=== PATIENT | male | born 1985 | race Caucasian/White ===

== ENCOUNTER 2016-10-19 19:13 | Emergency (ER) | payer MEDICARE, OTHER ==
[2016-10-19 19:37] VITALS: BP 113/66
== END 2016-10-19 21:01 | disposition left against medical advice (07) ==
LOC: ER 19:13
DX: Z53.21 Procedure and treatment not carried out due to patient leaving prior to being seen by health care provider (principal)

== ENCOUNTER 2016-10-20 11:50 | Emergency (ER) | payer MEDICARE, OTHER ==
[2016-10-20 12:21] VITALS: BP 123/68
--- NOTE | 2016-10-20 12:38 | ERNOTE ---
Lower Extremity HPI - Narrative Date of Service: 10/20/16 - General Lower Extremities Pain: hip: right Time Seen by Provider: 10/20/16 12:38 Source: patient Exam Limitations: no limitations - Immun/Allergies/Home Medications Immunizations: IMMUNIZATION HX Immunizations Up to Date Yes History of Influenza Vaccine No Hx Pneumococcal Vaccination No Allergies/Adverse Reactions: Allergies Allergy/AdvReac Type Severity Reaction Status Date / Time diphenhydramine HCl AdvReac Intermediate rash Verified 10/20/16 12:20 [From Benadryl] steriod Allergy Severe Other Uncoded 10/20/16 12:20 Home Medications: HOME MEDICATIONS Hydromorphone HCl [Dilaudid] 4 mg PO QID PRN 10/19/16 [Last Taken Unknown] oxyCODONE HCL/ACETAMINOPHEN [Percocet 5 MG/325 MG] 1 tab PO QID PRN #14 tablet 10/20/16 [Last Taken Unknown] - History of Present Illness Narrative: Pt has evidence of recent R hip surgery. he sts that he missed his appt yest and that he is being mailed a prescription along with a new appt. He is requesting dilaudid po for pain. The wound apeears clean and dry and not infected Location of Incident: other - surgery in preparation for a new total hip replacment. He sts that his previous hip prosthesis was recalled Other Injuries: Reports: none Prior Treament: Reports: recently seen, treated by physician, recently hospitalized - see HPI Review of Systems - Review of Systems Constitutional: Present: no symptoms reported EYE: Present: no symptoms reported ENT: Present: no symptoms reported Respiratory: Present: no symptoms reported Cardiology: Present: no symptoms reported Gastrointestinal/Abdominal: Present: no symptoms reported Genitourinary: Present: no symptoms reported Musculoskeletal: Present: no symptoms reported Skin: Present: no symptoms reported - Patient's Past Medical History Patient History - Medical: Anxiety, Arthritis, Chronic Pain, Osteoarthritis, Other Patient History - Cardiac/Respiratory: No pertinent hx Patient History - Cancer: No Hx of Cancer Patient History - Surgical Procedures: Ear Tubes, Total Hip Replacement, T & A - Family History Father Family History - Medical: Diabetes Type 2 Family History - Cardiac/Respiratory: No pertinent hx - Social History Living Situations: home Alcohol Use: none Drug Use: marijuana Physical Exam - Physical Exam General Appearance: Present: alert, mild distress Eye Exam: Normal inspection: bilateral Ears, Nose, Throat: Present: normal ENT inspection Neck: Present: normal inspection Respiratory: Present: no respiratory distress Cardiovascular/Chest: Present: regular rate, rhythm Gastrointestinal/Abdominal: Present: normal bowel sounds Back Exam: Present: normal inspection Extremity Exam: Present: other - long incision to the R lateral thigh. Multiple sutures still in place. No erythema or exudate Neurological Exam: Present: alert ED Progress - Vital Signs Patient's Vital Signs:: I have reviewed the patient's vital signs. Vital Signs: Vital Signs 10/20/16 12:11 Temperature 36.9 C Pulse Rate 81 Respiratory 12 Rate Blood Pressure 123/68 O2 Sat by Pulse 100 Oximetry - Progress/Reassessment Chief Complaint: Hip Pain/Injury Plan - Plan Plan: percocet 5/325 po q6 hrs x 3 days Departure Clinical Impression: Post-op pain - Departure Disposition: Home self-care Condition: Good Instructions: Total Hip Replacement, [id number] Prescriptions: oxyCODONE HCL/ACETAMINOPHEN [Percocet 5 MG/325 MG] 1 tab PO QID PRN #14 tablet PRN Reason: Analgesia
== END 2016-10-20 13:01 | disposition home or self-care (01) ==
LOC: ER 11:50
DX: G89.18 Other acute postprocedural pain (principal); Z96.641 Presence of right artificial hip joint

== ENCOUNTER 2016-12-21 00:59 | Emergency (ER) | payer MEDICARE, OTHER ==
--- NOTE | 2016-12-21 01:16 | ERNOTE ---
Medical Problem HPI - General Chief Complaint: Drug Overdose Time Seen by Provider: 12/21/16 00:59 Source: EMS Exam Limitations: clinical condition, intoxication - / OD - Immun/Allergies/Home Medications Immunizations: IMMUNIZATION HX Immunizations Up to Date Yes History of Influenza Vaccine No Hx Pneumococcal Vaccination No Allergies/Adverse Reactions: Allergies diphenhydramine HCl [From Benadryl] Adverse Reaction (Intermediate, Verified 05/02 01:09) rash steriod Allergy (Severe, Uncoded 12/21/16 01:09) Other caused bone disease Home Medications: HOME MEDICATIONS Hydromorphone HCl [Dilaudid] 4 mg PO QID PRN 10/19/16 [Last Taken Unknown] oxyCODONE HCL/ACETAMINOPHEN [Percocet 5 MG/325 MG] 1 tab PO QID PRN #14 tablet 10/20/16 [Last Taken Unknown] - History of Present History Narrative: EMS was called to 31 yo M unresponsive. When they arrived they found irregular respirations from 0-10 resp per min. Pt was given 1 mg narcan by EMS and patient was beginning to awaken when he arrived in the ED. He continued to be lethargic for 30-60 minutes. Timing: other - improved due to narcan administration by EMS Severity: severe Modifying Factors - (Improves): Present: medication Review of Systems - Review of Systems Constitutional: Present: fatigue, malaise. Absent: recent illness EYE: Present: no symptoms reported ENT: Present: no symptoms reported Respiratory: Present: no symptoms reported Cardiology: Present: no symptoms reported Gastrointestinal/Abdominal: Present: nausea Genitourinary: Present: no symptoms reported Musculoskeletal: Present: back pain, joint pain - right hip infection, currently has a spacer waiting for reimplantation of hip Skin: Present: no symptoms reported Neurological: Present: no symptoms reported Endocrine: Present: no symptoms reported Hematologic/Lymphatic: Present: no symptoms reported Psych: Present: anxiety, depressed - Patient's Past Medical History Patient History - Medical: Anxiety, Arthritis, Chronic Pain, Osteoarthritis, Other Patient History - Cardiac/Respiratory: No pertinent hx Patient History - Cancer: No Hx of Cancer Patient History - Surgical Procedures: Ear Tubes, Total Hip Replacement, T & A Patient History - Other: None - Family History Father Family History - Medical: Diabetes Type 2 Family History - Cardiac/Respiratory: No pertinent hx - Social History Living Situations: home Abuse History: No History of abuse Psych History: Hx of Anxiety, Hx of Depression, Current tx/ever been on anti- depressants or anti-anxiety meds Smoking Status: Current every day smoker Patient requests Smoking Cessation Consult: No Initiate information on Smoking Cessation: No Alcohol Use: none Drug Use: marijuana - Immunizations Immunizations Up to Date: Yes Hx Pneumococcal Vaccination: No History of Influenza Vaccine: No Physical Exam - Physical Exam General Appearance: Present: moderate distress, lethargic - slurring words Respiratory: Present: no respiratory distress, normal breath sounds, no accessory muscle use Cardiovascular/Chest: Present: regular rate, rhythm, no murmur Gastrointestinal/Abdominal: Present: nontender, nondistended Back Exam: Present: no vertebral tenderness Extremity Exam: Present: normal except - - left hip tenderness, IO in left upper humerus, stable and running fluids, no edema Neurological Exam: Present: alert, oriented - after 30-60 minutes, other - pt agitated, but somewhat lethargic as well Skin Exam: Present: normal color, warm/dry, other - Many tattoos in good condition. a few injection points that are probably attempts by EMS to start IV access. ED Progress - Results and Orders Patient's Lab Results:: I have reviewed the patient's lab results. Results and Orders: Laboratory Tests 12/21/16 12/21/16 01:20 01:20 WBC 7.5 Hgb 11.5 L Hct 37.0 L Plt Count 265 Sodium 144 H Potassium 4.0 D Chloride 103 Carbon Dioxide 31.7 Anion Gap 13.3 BUN 20 D Creatinine 1.38 Est GFR (Non-Af Amer) 64 BUN/Creatinine Ratio 14.5 Random Glucose 120 H Calcium 9.0 Total Bilirubin 0.4 AST 38 ALT 60 Alkaline Phosphatase 77 Total Protein 8.3 H Albumin 4.2 Salicylates 3.2 Acetaminophen Less than 0.2 L Ethyl Alcohol Less than 3.0 - Vital Signs Patient's Vital Signs:: I have reviewed the patient's vital signs. Vital Signs: Vital Signs 12/21/16 01:02 Temperature 36.5 C Pulse Rate 92 Respiratory 20 Rate Blood Pressure 106/72 O2 Sat by Pulse 98 Oximetry - EKG EKG: NSR EKG read: Interp. by me - Progress/Reassessment Chief Complaint: Drug Overdose Progress:: Improved - Mom was able to get him to tell that he had tampered with a fentanyl patch (50 mcg/h) and squirted the medicine into his mouth Progress Note-Subjective: 12/21/16 04:23 Pt has been sleeping. Vital signs have been stable for past 60-90 minutes Departure - Departure Clinical Impression: Chronic left hip pain Drug overdose Qualifiers: Encounter type: initial encounter Injury intent: accidental or unintentional Qualified Code(s): T50.901A - Poisoning by unspecified drugs, medicaments and biological substances, accidental (unintentional), initial encounter Disposition: Home self-care Condition: Good Instructions: Finding Treatment for Addiction, Opioid Overdose
[2016-12-21 01:32] LABS: Hemoglobin 11.5 gm/dL (13.5-18.0); Mean Cell Volume 84.1 fl (78-100); Mean Corpuscular Hemoglobin 26.1 pg (27-31); Mean Corpuscular Hgb Conc 31.1 g/dl (32-36); Neutrophil # 4.3 K/mm3 (1.3-6.0); Neutrophil % 57.7 % (42-75.0); Platelet Count 265 K/mm3 (150-450); Red Cell Distribution Width 16.1 % (11.5-14.0); White Blood Count 7.5 K/mm3 (4.0-10.5)
[2016-12-21 01:44] LABS: ALT 60 U/L (19-67); AST 38 U/L (0-48); Albumin * 4.2 gm/dl (3.4-5.0); Alkaline Phosphatase * 77 U/L (50-170); Anion Gap 13.3 mmol/L (6.8-13.8); BUN/Creatinine Ratio 14.5 (9.0-21.6); Bilirubin, Total 0.4 mg/dL (0.0-1.1); Blood Urea Nitrogen 20 mg/dL (6-23); Ca. Corrected For Albumin 8.5 mg/dL (8.4-10.2); Carbon Dioxide 31.7 mmol/L (24-32.6); Chloride 103 mmol/L (97-106); Glucose * 120 mg/dL (70-110); Salicylate 3.2 mg/dL (2.8-20.0); Sodium 144 mmol/L (132-142); Total Protein 8.3 gm/dL (6.2-8.2)
[2016-12-21] MEDS ORDERED: NORMAL SALINE 1,000 ML IV ONE (01:49)
--- OUTSIDE RECORDS SUMMARY | 2016-12-21 03:21 | XMS REPORT | Continuity of Care Document ---
:1985 Author Organization [facility] ([facility]) Address [address] [place] [address] Phone [phone] Care Team Providers Name Role Phone Provider, No-Primary Care Primary Care Provider Unavailable Source Comments This disclosure is being made pursuant to the Care Everywhere program, applicable federal and state laws, and may not contain all informaitonavailable regarding this patient.[facility] ([facility]) Active Allergies and Adverse Reactions Allergen Noted Date Severity Reactions Comments Diphenhydramine-Pseudoephe 03/20/2009 Urticaria (Hives) d Neuromuscular Blockers, 03/13/2014 Unknown Cause skin infection Steroidal Current Medications Prescription Sig. Disp. Refills Start Date End Date Status docusate 100 mg Take 1 capsule 60 capsule 0 10/08/2016 Active capsule (100 mg total) by mouth 2 times daily as needed. aspirin 81 mg EC Take 1 tablet 84 tablet 0 10/08/2016 Active tablet (81 mg total) by mouth 2 times daily. morpHINE 30 mg tablet Take 1/2 - 1 60 tablet 0 10/08/2016 Active tablet (15-30 mg total) by mouth every 4 hours as needed for pain. hydrOXYzine HCl 25 mg Take 1-2 120 tablet 0 10/08/2016 Active tablet tablets (25-50 mg total) by mouth every 4 hours as needed for Muscle spasms. naproxen 500 mg Take 1 tablet 60 tablet 3 10/08/2016 Active tablet (500 mg total) by mouth 2 times daily with meals. morpHINE 15 mg tablet Take 2 tablets 45 tablet 0 10/23/2016 Active (30 mg total) by mouth every 6 hours as needed. HYDROcodone-acetamino Take 1 tablet 60 tablet 0 11/05/2016 Active phen 5-325 mg per by mouth every tablet 8 hours as needed for Pain. ibuprofen 200 mg Take 800 mg by Active tablet mouth every 6 hours as needed. oxyCODONE-acetaminoph Take 1 tablet 30 tablet 0 11/19/2016 Active en 5-325 mg per by mouth every tablet 8 hours as needed. amoxicillin 875 mg Take 1 tablet 28 tablet 0 11/19/2016 12/03/2016 tablet (875 mg total) by mouth 2 times daily for 14 days. 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 Left hip pain 10/23/2016 Septic hip 10/05/2016 Intravenous drug abuse,illegal drugs and prescription narcotics 03/13/2014 ESR raised 03/13/2014 CRP elevated 03/13/2014 Tobacco abuse 03/13/2014 Alcohol abuse 03/13/2014 Dental caries 03/13/2014 Tooth infection 03/13/2014 Avascular necrosis of bones of both hips, diagnosed 200703/13/2014 History of total R hip arthroplasty, 09/200803/13/2014 Hip pain, chronic 03/13/2014 Hip pain, acute 03/13/2014 Most Recent Encounters Date Type Specialty Providers Description 01/03/2017 [facility] General Surgery Rodríguez Merchant Encounter MD Alice 12/16/2016 Office Visit Dentistry Vik Parnell Chief Comp: Pre-op L, ZINA Exam Conor Acuña DDS 12/16/2016 Telephone Orthopaedic Rodríguez Merchant Chief Comp: Follow-up MD Alice 12/13/2016 Office Visit Dentistry Dx: Dental examination 12/13/2016 Office Visit Felipe Mcgregor, Dx: Hip joint DDS replacement status Thomas Álvarez DDS 12/13/2016 Ancillary Orders Felipe Mcgregor Dx: Dental examination DDS (Primary Dx) 12/10/2016 Office Visit Dentistry Chief Comp: Patient Reported Reason For Visit 12/09/2016 Telephone Orthopaedic Rodríguez Merchant Dx: Hip joint MD Alice replacement status (Primary Dx) 12/06/2016 [facility] Radiology Ute Gee Chief Comp: Patient Encounter MD Dharmesh Reported Reason For Visit 12/06/2016 Office Visit Orthopaedic Rodríguez Merchant Dx: Pre-op testing MD Alice (Primary Dx) Vicente Sullivanise A, PREPARED FO[employer]S SERVICE TEAM MEMBER 11/24/2016 Surgery General Surgery Noiseux, Rodríguez ARTHROPLASTY HIP MD Alice REVISION JUANJOSE 11/22/2016 Telephone Rodríguez Fitzgerald MD 11/19/2016 Office Visit Med Infectious Default, Other Dx: Septic hip Disease Billg - Defo (Primary Dx) Eunice Gomez MD Team, Msc Id II 11/19/2016 [facility] Radiology Gerard Ute Dx: Aftercare Encounter MD Dharmesh following surgery of the musculoskeletal system 11/19/2016 Office Visit Orthopaedic Shonda Rodríguez Dx: Aftercare MD Alice following surgery of SullivanDeborah A, the musculoskeletal PREPAR[employer] SERVICE TEAM MEMBER system (Primary Dx) 11/19/2016 Office Visit Med Infectious Default, Other Chief Comp: Patient Disease Billg - Defo Reported Reason For Team, Msc Id II Visit 11/15/2016 Telephone Orthopaedic Rodríguez Merchant Chief Comp: Follow-up MD Alice 11/09/2016 Office Visit Orthopaedic Koko Merchantlas Chief Comp: Patient OMD Reported Reason For SullivanVicente medelise A, Visit PREPARED [employer] SERVICE TEAM MEMBER 11/05/2016 Office Visit Orthopaedic Noiseux, Rodríguez Dx: Right hip pain MD Alice (Primary Dx) Deborah Sullivan A, PREPARED [employer]S SERVICE TEAM MEMBER 11/05/2016 Office Visit Orthopaedic Noiserupa, Rodríguez Chief Comp: Patient OMD Reported Reason For Sullivan Deborah A, Visit PREPAR[employer] SERVICE TEAM MEMBER 10/29/2016 Office Visit Orthopaedic Noiseux, Rodríguez Chief Comp: Patient MD Alice Reported Reason For Sullivan, Deborah A, Visit PREPAR[employer] SERVICE TEAM MEMBER 10/23/2016 [facility] Emergency Medicine Laurent Alejandra Dx: Septic hip Encounter MD Navin (Primary Dx) 10/22/2016 Telephone Orthopaedic Renee Nassar Chief Comp: Court Meeks MD Only 10/19/2016 Telephone Orthopaedic Rodríguez Merchant Chief Comp: Follow-up MD Alice 10/08/2016 Pharmacy Visit 10/06/2016 Surgery General Surgery Shonda, Rodríguez RESECTION ARTHROPLASTY MD Alice TOTAL HIP AML/PINNACLE 10/05/2016 Anesthesia Event General Surgery John Dick, SHIPPING AND RECEIVING 10/05/2016 Telephone Gayathri Shaikh MD Chief Comp: Consult With Local Provider 10/05/2016 Telephone Orthopaedic Charles Chief Comp: Monitored Smith Kelley MD Phone Call 10/04/2016 - [facility], Thu M, MD Dx: Avascular necrosis 10/08/2016 Encounter Inpatient - Adult [place], of bones of both hips, Spencer Kelley MD diagnosed 2007 Ahmed, (Primary Dx) MD Shonda Avery Nicolas O, MD Social History Tobacco Use Types Packs/Day Years Used Date Current Every Day Smoker Cigarettes 1 10 Smokeless Tobacco: Never Used Tobacco Cessation:Ready to Quit: No; Counseling Given: No Comments: Alcohol Use Drinks/Week oz/Week Comments Yes 6 Cans of beer 3.5 Drinks beer primarily. 7 Standard drinks or equivalent Last Filed Vital Signs Vital Sign Reading Time Taken Blood Pressure 119/72 12/16/2016 11:51 AM OIL FIELD OPERATOR Pulse 80 12/16/2016 11:51 AM OIL FIELD OPERATOR Temperature 36.2 C (97.2 F) 12/16/2016 11:49 AM OIL FIELD OPERATOR Respiratory Rate 18 10/23/2016 12:09 PM OIL FIELD OPERATOR Height 1.753 m (5' 9") 10/05/2016 3:44 PM OIL FIELD OPERATOR Weight 77.111 kg (170 lb) 11/19/2016 2:46 PM OIL FIELD OPERATOR Body Mass Index 25.09 11/19/2016 2:46 PM OIL FIELD OPERATOR Oxygen Saturation 98% 10/23/2016 12:09 PM OIL FIELD OPERATOR Plan of Care Date Type Specialty Providers Description 12/31/2016 Appointment Dentistry Mian Duckworth DDS Chief Comp: Patient [address] [place] [address] Visit [phone] (Fax) 01/03/2017 Surgery General Surgery Rodríguez Merchant MD ARTHROPLASTY HIP [address] [place] [address] [phone] (Fax) Health Maintenance Due Date Last Done Comments Hepatitis B Vaccine (1 of 3 - Primary Series) 1985 Tdap Vaccine 1997 Lipid Disorder Screening 2004 MMR Vaccine 2004 Td Vaccine 2004 Varicella Vaccine (1 of 2 - Adult - No Evidence of 2004 Immunity) Pneumococcal Vaccine (1 of 1 - PPSV23) 2005 Influenza Vaccine: Seasonal (#1) 05/17/2016 Procedures from Last 3 Months Procedure Name Priority Date/Time Associated Diagnosis Comments ABSTRACTED BY BILLING Routine 10/19/2016 9:11 Infection of right Results for this STAFF AM OIL FIELD OPERATOR prosthetic hip joint procedure are in Intravenous drug the results abuse,illegal drugs section. and prescription narcotics RESECTION 10/06/2016 9:10 Intravenous drug ARTHROPLASTY TOTAL AM OIL FIELD OPERATOR abuse HIP AML/PINNACLE Case Notes Corail/ASR out, Stage One Select in Results from Last 3 Months HOSP DENT SINGLE PANOREX (EACH) (12/13/2016 3:56 PM)PELVIS LOW AP& LATERAL HIP RIGHT (12/06/2016 11:41 AM) Impressions Findings / Impression: Stable appearance of the right hip implant with antibiotic spacer, without interval hardware complication. No fractures or dislocations. Redemonstrated left hip arthroplasty appears stable. Narrative Procedure: PELVIS LOW AP & LATERAL HIP RIGHT Clinical Indication: Status post right hip explant and recent fall on right leg Comparison: 11/19/2016, 10/06/2016 Procedure Note Alcides, Incoming Imaging Results - TueDec 06, 2016 6:57 PM OIL FIELD OPERATOR Procedure: PELVIS LOW AP & LATERAL HIP RIGHT Clinical Indication: Status post right hip explant and recent fall on right leg Comparison: 11/19/2016, 10/06/2016 IMPRESSION Findings / Impression: Stable appearance of the right hip implant with antibiotic spacer, without interval hardware complication. No fractures or dislocations. Redemonstrated left hip arthroplasty appears stable. DIFFERENTIAL (12/06/2016 11:32 AM) Component Value Range % Neutrophils-Auto Diff 45.8 % Neutrophils-Auto Diff 2450 7628-9820 /MM3 % Lymphocytes-Auto Diff 43.0 % Lymphocytes-Auto Diff 2300 875-3300 /MM3 % Monocytes-Auto Diff 6.5 % Monocytes-Auto Diff 350 130-860 /MM3 % Eosinophils-Auto Diff 3.6 % Eosinophils-Auto Diff 190 40-390 /MM3 % Basophils 0.7 % Basophils-Auto Diff 40 10-136 /MM3 % Immature Granulocytes-Auto Diff 0.4 % Immature Granulocytes-Auto Diff 20 /MM3 Specimen Whole Blood CBC (COMPLETE BLOOD COUNT) (12/06/2016 11:32 AM) Component Value Range WBC Count 5.4 3.7-10.5 K/MM3 RBC Count 4.49(L) 4.50-6.20 M/MM3 Hemoglobin 12.0(L) 13.2-17.7 g/dL Hematocrit 38(L) 40-52 % MCV (Mean Corpuscular Volume) 85 82-99 FL MCH (Mean Corpuscular Hemoglobin) 27 25-35 PG MCHC (Mean Corpuscular Hemoglobin Concentration) 32 32-36 % Platelet Count 389 150-400 K/MM3 MPV (Mean Platelet Volume) 10.4 9.4-12.3 FL RBC Dist Width-STD 51.9(H) 35.1-43.9 FL RBC Distrib Width 16.9(H) 9.0-14.5 % Nucleated RBC 0 /100 WBC Specimen Whole Blood MICROSCOPIC URINALYSIS (12/06/2016 11:32 AM) Component Value Range White Blood Cells, Urine <1 0-5 /HPF Red Blood Cells, Urine <1 0-2 /HPF Mucous-Urine Rare None, Rare Specimen Urine URINALYSIS WITH REFLEX CULTURE (12/06/2016 11:32 AM) Component Value Range Color, Urine Straw Straw, Pale Yellow, Yellow, Clear, None Clarity, Urine Clear Clear pH, Urine 6.0 <9.0 Spec [place], Urine 1.005 1.000-1.030 Glucose, Urine Negative Negative Blood, Urine Negative Negative Ketones, Urine Negative Negative Protein, Urine Negative Negative Urobilinogen, Urine Normal Normal Bilirubin, Urine Negative Negative Leukocyte Esterase, Urine Negative Negative Nitrite, Urine Negative Negative Specimen Urine BASIC METABOLIC PANEL W/ CALCIUM (CHEM 8) (12/06/2016 11:32 AM)Only the most recent of2 resultswithin the time period is included. Component Value Range Sodium 137 135-145 mEq/L Potassium 4.2 3.5-5.0 mEq/L Chloride 100 95-107 mEq/L CO2 22 22-29 mEq/L Anion Gap 15 8-18 mEq/L BUN 14 10-20 mg/dL Creatinine 0.8Comment: 0.6-1.2 mg/dL Creatinine switched to enzymatic method on 02/23/2011.GFR equation switched to IDMS-traceable MDRD equation on 02/23/2011. Calculated GFR values are not valid in clinical settings where serum creatinine is changing. Glucose 101(H)Comment: 65-99 mg/dL The Expert Committee on the Diagnosis and Classification of Diabetes has defined impaired fasting glucose as greater than or equal to 100 mg/dL but less than 126 mg/dL.(Diabetes Care 28 (Suppl 1)S41,2005) Calcium 9.5 8.5-10.5 mg/dL Calculated GFR >90 >60 mL/min/1.73 m2 Specimen Blood URINALYSIS WITH REFLEXED CULTURE AND MICROSCOPIC EXAM (12/06/2016 11:32 AM) Specimen Culture - Urine, Midstream clean catch Narrative The following orders were created for panel order URINALYSIS WITH REFLEXED CULTURE AND MICROSCOPIC EXAM. Procedure Abnormality Status --------- ------ URINALYSIS WITH REFLEX C...[[id number]]Normal Final result MICROSCOPIC URINALYSIS[[id number]] Normal Final result URINE CULTURE, REFLEXED[[id number]] Please view results for these tests on the individual orders. CBC WITH DIFFERENTIAL (12/06/2016 11:32 AM) Specimen Whole Blood Narrative The following orders were created for panel order CBC WITH DIFFERENTIAL. Procedure Abnormality Status --------- ------ CBC (COMPLETE BLOOD COUNT)[[id number]] AbnormalFinal result DIFFERENTIAL[[id number]] Final result Please view results for these tests on the individual orders. ERYTHROCYTE SEDIMENTATION RATE (12/06/2016 11:32 AM)Only the most recent of4 resultswithin the time period is included. Component Value Range ESR (Erythrocyte Sedimentation Rate) 10 0-15 mm/Hr Specimen Whole Blood C-REACTIVE PROTEIN (12/06/2016 11:32 AM)Only the most recent of4 resultswithin the time period is included. Component Value Range CRP (C-Reactive Protein) <0.5 <=0.5 mg/dL Specimen Blood MRSA/SA PCR (12/06/2016 11:32 AM) Component Value Range MRSA by PCR Negative Negative S. AUREUS by PCR NegativeComment:Negative for SA Negative Specimen Nasal Swab (MRSA) - Nasal Swab Narrative Test methodology:PCR amplification; Xpert SA Test ([employer]) PELVIS LOW AP& AP,LAT& LAUEN HIP RIGHT (11/19/2016 1:50 PM) Impressions Findings / Impression: Limited view of the left hip shows stable postsurgical changes of left total hip arthroplasty without evidence of interval hardware complication. Stable postsurgical changes of right hip explant with antibiotic spacer placement. Alignment is stable without evidence of interval hardware complication. No acute fracture or dislocation. Narrative Procedure: PELVIS LOW AP & AP,LAT & LAUEN HIP RIGHT Clinical Indication: Evaluate healing and alignment. Comparison: Radiographs of the pelvis (10/06/2016), radiographs of the right hip (10/23/2016) Procedure Note Alcides, Incoming Imaging Results - TueNov 19, 2016 3:00 PM OIL FIELD OPERATOR Procedure: PELVIS LOW AP & AP,LAT & LAUEN HIP RIGHT Clinical Indication: Evaluate healing and alignment. Comparison: Radiographs of the pelvis (10/06/2016), radiographs of the right hip (10/23/2016) IMPRESSION Findings / Impression: Limited view of the left hip shows stable postsurgical changes of left total hip arthroplasty without evidence of interval hardware complication. Stable postsurgical changes of right hip explant with antibiotic spacer placement. Alignment is stable without evidence of interval hardware complication. No acute fracture or dislocation. HIP AP& LATERAL RIGHT (10/23/2016 2:40 PM)Only the most recent of2 resultswithin the time period is included. Impressions Findings / Impression: Postsurgical changes of right hip explant with antibiotic spacer placement without evidence of complication. No perihardware lucency to suggest loosening. No periprosthetic fracture. If there is concern for infection, consider joint aspiration and fluid analysis. Narrative Procedure: HIP AP & LATERAL RIGHT Clinical Indication: History of septic arthritis, pain Comparison: 10/06/2016 Procedure Note Alcides, Incoming Imaging Results - Sat Oct 23, 2016 6:15 PM OIL FIELD OPERATOR Procedure: HIP AP & LATERAL RIGHT Clinical Indication: History of septic arthritis, pain Comparison: 10/06/2016 IMPRESSION Findings / Impression: Postsurgical changes of right hip explant with antibiotic spacer placement without evidence of complication. No perihardware lucency to suggest loosening. No periprosthetic fracture. If there is concern for infection, consider joint aspiration and fluid analysis. CREATININE (10/23/2016 1:46 PM)Only the most recent of2 resultswithin the time period is included. Component Value Range Creatinine 0.9Comment: 0.6-1.2 mg/dL Creatinine switched to enzymatic method on 02/23/2011.GFR equation switched to IDMS-traceable MDRD equation on 02/23/2011. Calculated GFR values are not valid in clinical settings where serum creatinine is changing. Calculated GFR >90 >60 mL/min/1.73 m2 Specimen Blood CBC (COMPLETE BLOOD COUNT) (10/23/2016 1:46 PM)Only the most recent of2 resultswithin the time period is included. Component Value Range WBC Count 9.2 3.7-10.5 K/MM3 RBC Count 4.25(L) 4.50-6.20 M/MM3 Hemoglobin 11.4(L) 13.2-17.7 g/dL Hematocrit 36(L) 40-52 % MCV (Mean Corpuscular Volume) 85 82-99 FL MCH (Mean Corpuscular Hemoglobin) 27 25-35 PG MCHC (Mean Corpuscular Hemoglobin Concentration) 32 32-36 % Platelet Count 574(H) 150-400 K/MM3 MPV (Mean Platelet Volume) 9.1(L) 9.4-12.3 FL RBC Dist Width-STD 45.9(H) 35.1-43.9 FL RBC Distrib Width 15.2(H) 9.0-14.5 % Nucleated RBC 0 /100 WBC Specimen Whole Blood OR CASE (10/19/2016 9:11 AM) Rodríguez Mason MD 10/19/20169:11 AM OR CASE: RESECTION ARTHROPLASTY TOTAL HIP AML/PINNACLE Additional Procedure Detail: [id number] with [id number] Post-Op Procedure Note Operation/Procedure: Procedure(s) (LRB): RESECTION ARTHROPLASTY TOTAL HIP AML/PINNACLE (Right) General Information: Date: 10/06/16 Time: 0910 Location: MAIN OR OR Room: MAIN OR Service: Orthopaedics Log ID: [id number] Surgeon: Surgeon(s) and Role: * Rodríguez Merchant MD - Primary * Kris Chanel MD - Resident - Assisting * Gayathri Hutson MD - Resident - Assisting Staff Information: Scrub Nurse: Shakira Bhatia RN; Reny Ferro RN Circulating Nurse: Shakira Bhatia RN; Lindsay Ramirez RN Cone Picker- Scrub: Teri Fraire Anesthesia: General Findings: Grossly purulent, with infected appearing tissue. No significant metallosis. Blood Loss: 300 ml Implants: Implant Name Type Inv. Item Serial No. Dietary Aide Lot No. LRB No. Used Action CEMENT PALACOS RADIOPAQUE 1 X 40 SINGLE - [id number] PALACOS RADIOPAQUE 1 X 40 SINGLEUNIV[facility] H[facility]ITALER_INC [id number] Right 4 Implanted femoral stem, head, cup, Right 1 Explanted Stage One Select Hip Head Cement Spacer Mold with Insert BIOMET_INC [id number] Right 1 Implanted Hip Stem Cement Spacer Mold with ReinforcementBIOMET_INC [id number] Right 1 Implanted MOLD HIP NECK LENGTH ADAPTOR +6 MM - [id number] MOLD HIP NECK LENGTH ADAPTOR +6 MM ZIMMER_[id number] Right 1 Implanted Specimens: ID Type Source Tests Collected by Time Destination A : Right hip #1 Microbiology Tissue, specify FUNGAL CULTURE (INCLUDES DIRECT STAIN), ACID-FAST BACILLI (AFB) CULTURE, ANAEROBIC CULTURE, AEROBIC CULTURE, ROUTINE Rodríguez Merchant MD 10/06/2016 1011 B : Right hip #2 Microbiology Tissue, specify FUNGAL CULTURE (INCLUDES DIRECT STAIN), ACID-FAST BACILLI (AFB) CULTURE, ANAEROBIC CULTURE, AEROBIC CULTURE, ROUTINE Rodríguez Merchant MD 10/06/2016 1013 C : Right hip #3 Microbiology Tissue, specify FUNGAL CULTURE (INCLUDES DIRECT STAIN), ACID-FAST BACILLI (AFB) CULTURE, ANAEROBIC CULTURE, AEROBIC CULTURE, Rodríguez Osuna MD 10/06/2016 1024 D : femoral membrane Microbiology Tissue, specify FUNGAL CULTURE (INCLUDES DIRECT STAIN), ACID-FAST BACILLI (AFB) CULTURE, ANAEROBIC CULTURE, AEROBIC CULTURE, ROUTINE Rodríguez Merchant MD 10/06/2016 1052 E : deep acetabulem Microbiology Tissue, specify FUNGAL CULTURE (INCLUDES DIRECT STAIN), ACID-FAST BACILLI (AFB) CULTURE, ANAEROBIC CULTURE, AEROBIC CULTURE, ROUTINE Rodríguez Merchant MD 10/06/2016 1054 Complications: None; patient tolerated the procedure well. Condition: PACU - hemodynamically stable. Return to the OR planned in the next 30 days? No Readmission planned in the next 30 days? 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 male with history of large head metal on metal KENISHA with a recalled ASR acetabular cup and a corail stem. The patient has history of IV drug abuse, multiple previous surgeries on right hip for AVN prior to KENISHA. The patient developed systemic signs of infection and had aspirate with 193,000 nucleated cells that is growing streptococcus. He was indicated for explantation and stage 1 antibiotic spacer placement. The patient was identified in the pre-operative holding area. The patient's consent was reviewed, his site was marked, and his history was updated. The patient was taken to the operating room. General anesthesia was induced. The site was prepped and draped in a sterile fashion. A multi-disciplinary time-out was undertaken confirming correct patient, correct site, and allergies prior to the operation was begun. Vancomycin was given just prior to the start of the operation. The previous incision was utilized and a standard posterior approach was performed. Hemostasis was meticulously achieved during the approach. We identified the scarred down external rotators and these were detached with electrocautery.We then completed the capsulotomy and flavia purulence was encountered. 5 total cultures were obtained and sent for aerobic, anaerobic, and fungal cultures. We then noted that additional exposure was needed to remove the components, and quadratus, obturator externus, and the gluteal sling were taken down. Hemostasis was achieved. We then removed the head uneventfully. There was no significant metallosis present in the soft tissues. We then cleared stem of soft tissue so that the extractor could be applied. It was noted that the stem had excellent on-growth and was very well fixed. A pencil tip paty was used to gently free up space entirely around the proximal femur. Straight and curved flexible osteotomes were then used in a systematic fashion to free up the stem. After some considerable work, the stem was freed up and able to be extracted with the extractor. A small fracture of the medial calcar was noted that was proximal to the lesser trochanter. This was confirmed on x-ray at the time of evaluated the cemented spacer later in the case. Back shop firer/fireman was used to remove femoral membrane and this was sent for culture. We then turned our attention to the ASR acetabular component. It was noted to well fixed. Secondary to the unique geometry of the ASR, the juanjose explant tool was less effective. Thus, osteotomes were used to gently free-hand out the acetabular component in a systematic fashion. This was done with minimal bone loss. We then removed the cerclage wire with a mighty bite and rongeur after freeing up the soft tissue. The patient then had an extensive soft tissue debridement of all infecting appearing with electrocautery. We then irrigated with 9L NS. We then prepared the femoral canal for the the juanjose stage 1 selectAntibiotic spacer. We reamed by hand and then on power to an 11. We then broached to an 11. This fit appropriately, and we used the rat-tail to lateralize the component. We then placed a size 11 antibiotic spacer with 2 vancomycin and 2 gentamicin. We then used the +6 neck and placed the size 52 antibiotic spacer femoral head. We reduced the hip and it was stable through flexion to 90 degrees with internal rotation to 70 degrees. There was no impingement. Leg lengths appeared appropriate clinically. We took an x-ray which confirmed equal leg lengths. The previous small calcar fracture proximal to the less trochanter was seen, non-displaced, and did not propagate distally. We were satisfied with our fixation. An additional 3L was irrigated through the wound. We then closed the capsule followed by the piriformis with interrupted #1 PDS. The fascia was closed with looped 0 running 0 PDS. The deep dermis was closed with interrupted 2-0 monocryl. The skin was closed with 2-0 prolene alternating vertical mattress sutures and simple sutures. The wound was then dressed with xeroform, 4x4, abd, and mediport tape. Post-operative plan: IV antibiotics, PICC line for minimimum 6 weeks IV antibiotics and additional oral antibiotics up to 3 months. Plan for reimplantation in 8-10 weeks if stable after IV antibiotics completed. 50% weightbearing. Post-operative x-ray with hardware in appropriate position without complications and small chip off medial calcar that does not extend distal to lesser trochanter. Neuro intact in PACU. Work with PT on mobilization. Disposition: Admitted Attending Attestation: Rodríguez Merchant MD was present for villanueva portions of the procedure defined as, and was immediately available for the remainder of the procedure. The villanueva portions are defined as: Irrigation and debridement and Antibiotic spacer implantation. Kris Chanel MD HEMATOCRIT (10/08/2016 8:05 AM)Only the most recent of2 resultswithin the time period is included. Component Value Range Hematocrit 26(L) 40-52 % Specimen Whole Blood HEMOGLOBIN (10/08/2016 8:05 AM)Only the most recent of2 resultswithin the time period is included. Component Value Range Hemoglobin 9.1(L) 13.2-17.7 g/dL Specimen Whole Blood GLUCOSE (10/08/2016 8:05 AM) Component Value Range Glucose 153(H)Comment: 65-99 mg/dL The Expert Committee on the Diagnosis and Classification of Diabetes has defined impaired fasting glucose as greater than or equal to 100 mg/dL but less than 126 mg/dL.(Diabetes Care 28 (Suppl 1)S41,2005) Specimen Blood URINE MICROSCOPIC (10/07/2016 1:42 PM) Component Value Range White Blood Cells, Urine 1 0-5 /HPF Red Blood Cells, Urine 1 0-2 /HPF Bacteria, Urine Rare(A) /HPF Mucous-Urine Rare None, Rare Specimen Urine URINALYSIS (10/07/2016 1:42 PM) Component Value Range Color, Urine Straw Straw, Pale Yellow, Yellow, Clear, None Clarity, Urine Clear Clear pH, Urine 6.0 <9.0 Glucose, Urine Negative Negative Blood, Urine Negative Negative Ketones, Urine Negative Negative Protein, Urine Negative Negative Urobilinogen, Urine Normal Normal Bilirubin, Urine Negative Negative Leukocyte Esterase, Urine Negative Negative Nitrite, Urine Negative Negative Spec [place], Urine <1.005 1.000-1.030 Specimen Urine BLOOD UREA NITROGEN (10/07/2016 1:00 PM) Component Value Range BUN 5(L) 10-20 mg/dL Specimen Blood CO2 (10/07/2016 1:00 PM) Component Value Range CO2 21(L) 22-29 mEq/L Anion Gap 12 8-18 mEq/L Specimen Blood CHLORIDE (10/07/2016 1:00 PM) Component Value Range Chloride 104 95-107 mEq/L Specimen Blood POTASSIUM (10/07/2016 1:00 PM) Component Value Range Potassium 4.1 3.5-5.0 mEq/L Specimen Blood SODIUM (10/07/2016 1:00 PM) Component Value Range Sodium 137 135-145 mEq/L Specimen Blood PELVIS LOW AP (10/06/2016 1:28 PM)Only the most recent of2 resultswithin the time period is included. 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 Comparison: Plain films dated 10/05/2016 Findings / Impression: Postprocedural changes of explant and antibiotic spacer placement. Postsurgical changes of left total hip arthroplasty without interval hardware complication. 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 Comparison: Plain films dated 10/05/2016 Findings / Impression: Postprocedural changes of explant and antibiotic spacer placement. Postsurgical changes of left total hip arthroplasty without interval hardware complication. AEROBIC CULTURE, ROUTINE (10/06/2016 10:54 AM)Only the most recent of5 resultswithin the time period is included. Component Value Range Culture Rare - 3 colonies Streptococcus mitis/oralis group(A)Comment:Susceptibility testing was not performed. See for susceptibility of same isolate(s). For further details, call [phone]. Gram Stain No organisms observed Gram Stain Rare PMN's Specimen Microbiology - Tissue, specify Narrative Identification performed by MALDI-TOF mass spectrometry (MS).The performance characteristics of MALDI-TOF MS were determined by the [facility].It has not been cleared orApproved by the FDA. The FDA has determined that such clearance or approval is not necessary.This test is for clinical purposes. It should not be regarded as investigational or for research.The laboratory is certified under the Clinical Laboratory Improvement Amendments of 1988 (CLIA) as qualified to perform high complexity clinical laboratory testing. ANAEROBIC CULTURE (10/06/2016 10:54 AM)Only the most recent of6 resultswithin the time period is included. Component Value Range Anaerobic culture growth No anaerobic organisms isolated Specimen Microbiology - Tissue, specify ACID-FAST BACILLI (AFB) CULTURE (10/06/2016 10:54 AM)Only the most recent of5 resultswithin the time period is included. Component Value Range AFB Culture No acid fast bacilli isolated at 6 weeks. Specimen Microbiology - Tissue, specify FUNGAL CULTURE (INCLUDES DIRECT STAIN) (10/06/2016 10:54 AM)Only the most recent of5 resultswithin the time period is included. Component Value Range Fungal Culture No fungi isolated Calcofluor White Stain No yeast or fungal elements observed Specimen Microbiology - Tissue, specify BLOOD GLUCOSE, BEDSIDE (10/06/2016 7:12 AM) Component Value Range Glucose, Accu-Chek 84 65-99 mg/dL Specimen Blood, capillary FL INJECTION&/OR ASPIRATION MAJOR JOINT (10/05/2016 3:44 AM) Impressions Impression: Technically successful fluoroscopically guided right hip joint aspiration. Narrative Procedure: FL INJECTION &/OR ASPIRATION MAJOR JOINT Clinical Indication: Right hip pain, fever, and elevated inflammatory markers Please perform fluoroscopically guided right hip aspiration for cell count, Synovasure and culture. Exam: Right hip fluoroscopically guided aspiration. Procedure: Written, informed consent was obtained from the patient for the procedure of fluoroscopically guided right hip aspiration after the risks and benefits of this procedure had been explained.A timeout was performed to verify the patient's name, date of , proper procedure and correct procedural site.The patient's most recent history and physical exam was reviewed. The patient was placed supine on the fluoroscopic table and the area overlying the right hip joint was prepped and draped in the usual sterile fashion. The skin overlying the right total hip arthroplasty was marked under fluoroscopic guidance and the overlying skin was anesthetized with approximately 6 ml of buffered 1% lidocaine. A 18 gauge spinal needle was advanced percutaneously near the superolateral aspect of the arthroplasty femoral neck. Approximately 10 ml of purulent fluid was aspirated.The fluid was personally delivered to pathology for cell count and alpha defensins assay and to microbiology for culture and Gram stain per the clinical request. The patient tolerated the procedure well. There were no immediate complications. Dr. Gee was available at request throughout the procedure. Procedure Note Alcides, Incoming Imaging Results - Tue Oct 05, 2016 3:51 AM OIL FIELD OPERATOR Procedure: FL INJECTION &/OR ASPIRATION MAJOR JOINT Clinical Indication: Right hip pain, fever, and elevated inflammatory markers Please perform fluoroscopically guided right hip aspiration for cell count, Synovasure and culture. Exam: Right hip fluoroscopically guided aspiration. Procedure: Written, informed consent was obtained from the patient for the procedure of fluoroscopically guided right hip aspiration after the risks and benefits of this procedure had been explained. A timeout was performed to verify the patient's name, date of , proper procedure and correct procedural site. The patient's most recent history and physical exam was reviewed. The patient was placed supine on the fluoroscopic table and the area overlying the right hip joint was prepped and draped in the usual sterile fashion. The skin overlying the right total hip arthroplasty was marked under fluoroscopic guidance and the overlying skin was anesthetized with approximately 6 ml of buffered 1% lidocaine. A 18 gauge spinal needle was advanced percutaneously near the superolateral aspect of the arthroplasty femoral neck. Approximately 10 ml of purulent fluid was aspirated. The fluid was personally delivered to pathology for cell count and alpha defensins assay and to microbiology for culture and Gram stain per the clinical request. The patient tolerated the procedure well. There were no immediate complications. Dr. Gee was available at request throughout the procedure. IMPRESSION Impression: Technically successful fluoroscopically guided right hip joint aspiration. SYNOVIAL FLUID CRYSTAL ANALYSIS (10/05/2016 3:34 AM) Component Value Range Crystal Analysis Fluid Type Synovial Side of body Right Location of Source hip Monosodium Urate (MSU) Crystals Absent Absent Calcium Pyrophosphate Dihydrate (CPPD) Crystals Absent Absent Specimen Other BODY FLUID CELL COUNT AND DIFF (10/05/2016 3:34 AM) Component Value Range Body Fluid Type Synovial fluidComment:R hip Clarity, Other Turbid(A) Clear Color, Other Brown(A) None, Yellow, Pale Yellow Total Nucleated Count, Other 715544 /MM3 RBC Count, Other 359284 /MM3 Neutrophils, Other 502483 /MM3 Lymphocytes, Other 1934 /MM3 % Neutrophils, Other 99.0 % % Lymphocytes, Other 1.0 % Specimen Other PERIPROSTHETIC JOINT INFECTION, ALPHA-DEFENSINS PANEL (10/05/2016 3:34 AM) Component Value Range Periprosthetic Joint Infection (PJI) Positive(A) Negative Panel-SF Nnexg-Tqjdvelcg-QG Positive(A) Negative CRP-SF 41.1 mg/L Hemoglobin-SF Normal Normal Periprosthetic Joint Infection Report See ScanComment: In [employer], find scanned test results by clicking the Results Document hyperlink on the Order Report. For [employer] user the scan result report is not available, please contact physician for details. Specimen Synovial fluid STERILE BODY FLUIDS CULTURE-AUTOMATED (10/05/2016 3:34 AM) Component Value Range Blood Culture Streptococcus mitis/oralis group(A)Comment: Stain Few Gram Positive Cocci Stain Many PMN's Stain Result from Positive Culture Bottle Stain Gram Positive Cocci in Chains Stain Anaerobic bottle Stain Aerobic bottle Specimen Culture - Joint Fluid Narrative Identification performed by MALDI-TOF mass spectrometry (MS).The performance characteristics of MALDI-TOF MS were determined by the [facility].It has not been cleared orApproved by the FDA. The FDA has determined that such clearance or approval is not necessary.This test is for clinical purposes. It should not be regarded as investigational or for research.The laboratory is certified under the Clinical Laboratory Improvement Amendments of 1988 (CLIA) as qualified to perform high complexity clinical laboratory testing. Organism Antibiotic Method Susceptibility Streptococcus mitis/oralis group CEFTRIAXONE <=0.12: Susceptible Streptococcus mitis/oralis group CLINDAMYCIN >1: Resistant Streptococcus mitis/oralis group ERYTHROMYCIN >2: Resistant Streptococcus mitis/oralis group PENICILLIN G <=0.03: Susceptible Streptococcus mitis/oralis group VANCOMYCIN <=0.5: Susceptible BLOOD CULTURE (10/05/2016 2:49 AM)Only the most recent of2 resultswithin the time period is included. Component Value Range Blood Culture No Growth Specimen Blood - Blood, Venipuncture RIGHT FEMUR ENT AP& LAT, INCL AP& LAT HIP (10/05/2016 2:25 AM) Narrative Procedure: RIGHT FEMUR ENT AP & LAT, INCL AP & LAT HIP Clinical Indication: Right hip pain. History of avascular necrosis of the femoral heads. Comparison:Pelvis and right hip radiographs dated 07/11/2014. Findings / Impression: Redemonstration of right total hip arthroplasty. No acute fracture. Possible small amount of osteolysis around the medial aspect of the acetabular cup is relatively unchanged. No progressive osteolysis. Final report was reviewed with Gayathri Hutson. Procedure Note Alcides, Incoming Imaging Results - TueOct 05, 2016 8:25 AM OIL FIELD OPERATOR Procedure: RIGHT FEMUR ENT AP & LAT, INCL AP & LAT HIP Clinical Indication: Right hip pain. History of avascular necrosis of the femoral heads. Comparison: Pelvis and right hip radiographs dated 07/11/2014. Findings / Impression: Redemonstration of right total hip arthroplasty. No acute fracture. Possible small amount of osteolysis around the medial aspect of the acetabular cup is relatively unchanged. No progressive osteolysis. Final report was reviewed with Gayathri Hutson. TYPE AND SCREEN (BLOOD TYPE(ABORH) AND RBC ANTIBODY SCREEN) (10/04/2016 11:25 PM ) Component Value Range ABORH A Positive Specimen Expiration Date 2016-10-07 Antibody Screen Negative Specimen Blood PT/INR (PROTHROMBIN TIME/INR) VENOUS (10/04/2016 11:25 PM) Component Value Range PT (Prothrombin Time) 11 9-12 secs INR 1.1 <4.0 Specimen Blood
[2016-12-21 04:19] VITALS: BP 103/48
== END 2016-12-21 05:18 | disposition home or self-care (01) ==
LOC: ER 00:59
DX: M25.552 Pain in left hip (principal); T40.4X4A Poisoning by other synthetic narcotics, undetermined, initial encounter; Z72.0 Tobacco use
CPT/HCPCS: 36415; 80053; 85025; 93005; 94760; 99284; G0480; G0481

== ENCOUNTER 2017-03-26 14:18 | Emergency (ER) | payer MEDICARE, OTHER ==
[2017-03-26 17:05] LABS: Urine Bilirubin Negative (NEGATIVE); Urine Blood Negative /ul (NEGATIVE); Urine Ketone Negative (NEGATIVE); Urine Nitrite Negative (NEGATIVE); Urine Protein 30 mg/dL (NEGATIVE); Urine Specific Gravity >=1.030 SP.GR. (1.005-1.030); Urine Urobilinogen Normal (NORMAL)
[2017-03-26 17:15] LABS: Cocaine Ur Negative (NEGATIVE); Urine Barbiturate Negative (NEGATIVE); Urine Benzodiazepines Negative (NEGATIVE); Urine Opiates Negative (NEGATIVE); Urine PCP Negative (NEGATIVE)
[2017-03-26 17:16] LABS: Urine THC Positive (NEGATIVE)
--- OUTSIDE RECORDS SUMMARY | 2017-03-26 17:17 | XMS REPORT | Continuity of Care Document ---
:1985 Author Organization [facility] ([facility]) Address [address] [place] [address] Phone [phone] Care Team Providers Name Role Phone Provider, No-Primary Care Primary Care Provider Unavailable Source Comments This disclosure is being made pursuant to the Care Everywhere program, applicable federal and state laws, and may not contain all informaitonavailable regarding this patient.[facility] ([facility]) Active Allergies and Adverse Reactions Allergen Noted Date Severity Reactions Comments Diphenhydramine-Pseudoephe 03/20/2009 Urticaria (Hives) d Neuromuscular Blockers, 03/13/2014 Unknown Cause skin infection Steroidal Current Medications Prescription Sig. Disp. Refills Start Date End Date Status ibuprofen 800 mg Take 1 tablet 30 tablet 0 12/31/2016 Active tablet (800 mg total) by mouth every 6 hours as needed for pain. DO NOT EXCEED 3,200 MG IBUPROFEN PER DAY FROM ALL SOURCES chlorhexidine 0.12 % Rinse with 10 ML 473 mL 0 12/31/2016 Active oral rinse for 30 seconds twice daily for 10 days. Swish and spit out excess. Nothing by mouth for 30 minutes. aspirin 81 mg EC Take 1 tablet (81 84 tablet 0 01/04/2017 Active tablet mg total) by mouth 2 times daily. docusate 100 mg Take 1 capsule 60 capsule 0 01/04/2017 Active capsule (100 mg total) by mouth 2 times daily as needed. acetaminophen 325 mg Take 2 tablets 80 tablet 0 01/04/2017 Active tablet (650 mg total) by mouth every 6 hours as needed. amoxicillin 500 mg Take 1 capsule 270 capsule 0 01/04/2017 Active capsule (500 mg total) by mouth every 8 hours. HYDROmorphone 2 mg Take 1-3 tablets 100 tablet 0 01/04/2017 Active tablet (2-6 mg total) by mouth every 4 hours as needed for pain for 1 week. Then take 1-2 tablets (2-4 mg total) by mouth every 4 hours as needed for pain for 1 week. Then stop. HYDROcodone-acetamino Take 1 tablet by 90 tablet 0 01/14/2017 Active phen 5-325 mg per mouth every 8 tablet hours as needed. Active Problems Problem Noted Date Acquired absence [...] Recent Encounters Date Type Specialty Providers Description 02/18/2017 Hospital Encounter Radiology Ute Gee Dx: Aftercare MD Dharmesh following surgery of the musculoskeletal system 02/18/2017 Office Visit Rodríguez Fitzgerald Dx: Valentino Jenkins MD following surgery of Deborah Sullivan, the musculoskeletal STENOTYPE MACHINE OPERATOR system (Primary Dx) 01/24/2017 Office Visit Rodríguez Fitzgerald Dx: S/P revision of MD Alice total hip (Primary Dx) Deborah Sullivan STENOTYPE MACHINE OPERATOR 01/14/2017 Telephone Orthopaedic Rodríguez Merchant MD 01/13/2017 Refill Orthopaedic Rodríguez Merchant Dx: Arthralgia of hip, MD Alice unspecified laterality (Primary Dx) 01/05/2017 Nurse Triage Care Coordination Alice Sepulveda Chief Comp: NATHANIEL Singletary pool hand Follow-up Call 01/04/2017 Pharmacy Visit 01/03/2017 Anesthesia Event General Surgery Sami High MD 01/03/2017 Surgery General Surgery Rodríguez Merchant ARTHROPLASTY HIP MD Alice REVISION JUANJOSE 12/31/2016 Office Visit Dentistry John, Dx: Dental caries Jam Ralph DDS (Primary Dx) Mian Duckworth DDS 12/31/2016 Pharmacy Visit Social History Tobacco Use Types Packs/Day Years Used Date Current Every Day Smoker Cigarettes 1 11 Smokeless Tobacco: Never Used Tobacco Cessation:Ready to Quit: No; Counseling Given: No Comments: Alcohol Use Drinks/Week oz/Week Comments Yes 6 Cans of beer 3.5 Drinks beer primarily. 7 Standard drinks or equivalent Last Filed Vital Signs Vital Sign Reading Time Taken Blood Pressure 109/63 01/04/2017 1:55 PM CDT Pulse 63 01/04/2017 1:55 PM CDT Temperature 36.3 C (97.3 F) 01/04/2017 1:55 PM CDT Respiratory Rate 16 01/04/2017 4:00 PM CDT Height 1.727 m (5' 8") 01/03/2017 7:40 PM CDT Weight 72 kg (158 lb 11.7 oz) 01/03/2017 7:40 PM CDT Body Mass Index 24.14 01/03/2017 7:40 PM CDT Oxygen Saturation 99% 01/04/2017 1:55 PM CDT Plan of Care Health Maintenance Due Date Last Done Comments Hepatitis B Vaccine (1 of 3 - Primary Series) 1985 Tdap Vaccine 1997 Lipid Disorder Screening 2004 MMR Vaccine 2004 Td Vaccine 2004 Varicella Vaccine (1 of 2 - Adult - No Evidence of 2004 Immunity) Pneumococcal Vaccine (1 of 1 - PPSV23) 2005 Influenza Vaccine: Seasonal (Season Ended) 2017 Procedures from Last 3 Months Procedure Name Priority Date/Time Associated Diagnosis Comments ABSTRACTED BY BILLING Routine 01/04/2017 2:47 Acquired absence of Results for this STAFF PM CDT hip joint following procedure are in explantation of the results joint prosthesis section. with presence of antibiotic-impregnat ed cement spacer, right Infection of right prosthetic hip joint Hip pain, chronic, right ARTHROPLASTY HIP 01/03/2017 2:15 Infection of right REVISION JUANJOSE PM CDT prosthetic hip joint Case Notes Stage One Select out, Continuum/SL in ABSTRACTED BY BILLING Routine 12/31/2016 5:25 PM Dental caries Results for this STAFF CDT procedure are in the results section. Results from Last 3 Months PELVIS LOW AP& AP,LAT& LAUEN HIP RIGHT (02/18/2017 1:06 PM) Impressions Findings / Impression: Stable placement and alignment of right total hip arthroplasty components from revision with no interval hardware complications. No acute fracture or dislocations. Stable appearance and alignment of prior left total hip arthroplasty with no interval hardware complication. Narrative Procedure: PELVIS LOW AP & AP,LAT & LAUEN HIP RIGHT Clinical Indication: Status post right total hip arthroplasty, evaluate healing and alignment Comparison: Prior plain film dated 01/03/2017, 12/06/2016 Procedure Note Alcides, Incoming Imaging Results - TueFebruary 18, 2017 3:26 PM CDT Procedure: PELVIS LOW AP & AP,LAT & LAUEN HIP RIGHT Clinical Indication: Status post right total hip arthroplasty, evaluate healing and alignment Comparison: Prior plain film dated 01/03/2017, 12/06/2016 IMPRESSION Findings / Impression: Stable placement and alignment of right total hip arthroplasty components from revision with no interval hardware complications. No acute fracture or dislocations. Stable appearance and alignment of prior left total hip arthroplasty with no interval hardware complication. ORT OR CASE (01/04/2017 2:47 PM) Narrative Rodríguez Merchant MD 01/04/20172:47 PM OR CASE: ARTHROPLASTY HIP REVISION JUANJOSE Additional Procedure Detail: [id number] with [id number] Post-Op Procedure Note Operation/Procedure: Procedure(s) (LRB): ARTHROPLASTY HIP REVISION JUANJOSE (Right) General Information: Date: 01/03/17 Time: 1415 Location: MAIN OR OR Room: MAIN OR Service: Orthopaedics Log ID: [id number] Surgeon: Surgeon(s) and Role: * Rodríguez Merchant MD - Primary * Gagan Berry MD - Resident - Assisting * Jethro Lange - Assisting Staff Information: Circulating Nurse: Felipe Mann RN; Irene Hutson RN Rehabilitation Counsellor- Scrub: Teri Fraire Anesthesia: Regional Findings: 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 Estimated Blood Loss: 600 ml Implants: Implant Name Type Inv. Item Serial No. Survey Research Associate Lot No. LRB No. Used Action SCREW CANCELLOUS SELF-TAP 6.5 X 35MM - [id number] CANCELLOUS SELF-TAP 6.5 X [id number] Right 1 Implanted SCREW CANCELLOUS SELF-TAP 6.5 X 25MM - [id number] CANCELLOUS SELF-TAP 6.5 X [id number] Right 1 Implanted SCREW CANCELLOUS SELF-TAP 6.5 X 25MM - [id number] CANCELLOUS SELF-TAP 6.5 X [id number] Right 1 Implanted HIP ACETAB LINER ELEVATED RIM SZ LL 36MM LONGEVITY - [id number] HIP ACETAB LINER ELEVATED RIM SZ LL 36MM LONGEVITYZIMMER_[id number] Right 1 Implanted HIP FEMORAL HEAD BIOLOX DELTA CERAMIC 36MM -3.5MM JUANJOSE - [id number] FEMORAL HEAD BIOLOX DELTA CERAMIC 36MM -3.5MM [id number]_[id number] Right 1 Implanted HIP STEM BLACKWOOD SL REVISION 135 NK ANGLE 17 X 225MM - [id number] HIP STEM BLACKWOOD SL REVISION 135 NK ANGLE 17 X 225MM [id number]_INC Right 1 Implanted Specimens: ID Type Source Tests Collected by Time Destination 1 : right hip prosthetic joint R/O WBC per HPF Surgical Pathology Surgical Pathology Specimen SURGICAL PATHOLOGY EXAM Rodríguez Merchant MD 01/03/2017 1608 A : right hip 1 Microbiology Prosthetic joint ANAEROBIC CULTURE, AEROBIC CULTURE, ROUTINE Rodríguez Merchant MD 01/03/2017 1607 B : right hip 2 Microbiology Prosthetic joint ANAEROBIC CULTURE, AEROBIC CULTURE, ROUTINE Rodríguez Merchant MD 01/03/2017 1612 C : right hip 3 Microbiology Prosthetic joint ANAEROBIC CULTURE, AEROBIC CULTURE, ROUTINE Rodríguez Merchant MD 01/03/2017 1612 D : right hip 4 Microbiology Prosthetic joint ANAEROBIC CULTURE, AEROBIC CULTURE, Rodríguez Osuna MD 01/03/2017 1612 E : right hip 5 Microbiology Prosthetic joint ANAEROBIC CULTURE, AEROBIC CULTURE, Rodríguez Osuna MD 01/03/2017 1612 Complications: None; patient tolerated the procedure well. Condition: PACU - hemodynamically stable. Return to the OR planned in the next 30 days? No Readmission planned in the next 30 days? 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 Swartz is a 31 y.o. male with significant right hip pain and loss of function secondary to acquired absence of the right hip joint following explantation of joint prosthesis with presence of antibiotic-impregnated Stage One Select cement spacer that is no longer responsive conservative measures. The patient feels they have exhausted these and wish to proceed with surgery. All alternatives, benefits, and risks of the procedures were explained to the patient with no apparent barriers to learning or understanding. Risks were inclusive of, but not exhaustive to, DVT and PE, neurovascular injury, bleeding, hematoma, wound healing problems, stiffness and/or laxity in the knee, extensor mechanism disruption, fracture intra- or post-operative, mechanical failure, laborer marine terminal wear loosening or osteolysis, continued pain, as well as cardiopulmonary issues such as stroke or heart attack, related to the surgery or anesthesia and even a remote, but not zero, possibility of . The patient understood these and provided informed consent. Surgical plan: Removal of the antibiotic-loaded cement spacer (39774). CRP would be verified immediately prior to surgery. Intraoperative aspirate for cell count and neutrophil differential. Intraoperative frozen section to rule out infection/acute inflammation. If most or all intraoperative tests indicated likely eradication of the infection, reimplantation (aka conversion for billing purposes) of a right total hip arthroplasty (99315-26). If there was high suspicion of ongoing infection, reimplantation of antibiotic-loaded cement spacer for a second round of treatment of prosthetic joint infection of the right knee. CRP - 2.3 ESR - 25 Procedure Details: After identifying the correct patient and marking the correct side, the patient was brought to the operating room. Spinal anesthesia was provided with local briana-articular pain cocktail and TXA. A Mendez catheter was inserted. 2000 mg of Ancef were administered IV. The patient was turned to a opposite lateral [facility] and fixed to the board with four pegs. All bony prominences were appropriately padded. Right leg was prepped and draped in the usual sterile fashion. A multidisciplinary time out was correctly performed. Approach: The procedure was done through the prior posterior approach. The 17 cm skin incision was made over the postero-lateral aspect of the hip. Skin and soft tissue dissection were carried down to fascia jordon with cautery. Hemostasis was achieved with cautery. Prior to opening the fascia jordon, the superficial hip was irrigated clean, and an aspirate was performed of the joint space. 10 cc of blood-tinged but clear fluid was aspirated. It was sent for cell count and differential and returned later in the case as having 545 white blood cells with 41% neutrophils which is encouraging for eradication of the infection. #1) removal of the non-biodegradable antibiotic-loaded cement spacer Fascia jordon was incised in line with the skin incision and retracted with a Charnley retractor. The trochanteric bursa was incised and swept off the external rotators. Revision posterior approach to the hip was completed down to the lesser troch. When the prosthetic Stage One Select head was exposed, it was dislocated posteriorly with flexion, adduction and IR. The stem was removed with the screw-in slap-hammer extractor after tapping off the 56-mm cement head head from the trunnion with a bone tamp, and the femoral canal was irrigated and debrided thoroughly. After the hip was opened, a large sample of tissue taken from the center of the hip was sent to pathology for frozen section to look for infection/acute inflammation by white blood cells per high-power field. The call-back was returned as no infection/acute inflammation with no high-power mayorga containing more than 1 neutrophil. This was very encouraging for eradication of the infection, along with the CRP. 5 tissue cultures were sent to microbiology for aerobic and anaerobic culture and sensitivities to rule out ongoing infection. 3 samples were obtained from the deep center of the hip in various locations including capsule and one from the femoral membrane and one from the acetabular membrane. Based primarily on the pathology frozen section and today's CRP, we elected to proceed forward with reimplantation of the total hip arthroplasty as it appeared the infection had been eradicated. #2) reimplantation (conversion) total hip arthroplasty Acetabular preparation: the acetabulum was prepared and reamed in a standard fashion until there was good hemispheric contact and bleeding bone circumferentially. This was achieved with a 57 mm reamer.58 mm trial was inserted and impacted for a Continuum cup. The fit was satisfactory and a real58 mm Continuum multi-hole cup was impacted with 30 degrees of abduction and 20 degrees of anteversion until it was felt to be completely seated. 3 screws (25 mm to 35 mm range) were added to augment fixation. A 58 mm OD/ 36 mm ID Longevity 10-deg lipped liner was inserted and impacted, after appropriate trialing. Femoral preparation: The femur was then returned to a dislocated position, an antler retractor under the calcar and a cobra over the GT, and prepared in standard fashion to receive a size 17 x 225 mm standard-offset Blackwood SL stem. Trial reduction was performed with a -3.5 mm neck length on the 36 mm head. The real size 17 x 225 mm standard-offset Blackwood SL stem was inserted and impacted until the stem did not advance any further. It was 1-2 mm proud compared to the broach. Therefore, a -3.5 mm neck length, 36-mm ceramic head was impacted onto a clean and dry trunnion. Final reduction was performed into a clean and dry acetabulum. This gave satisfactory leg length, good range of motion, satisfactory stability, and no impingement in extension and external rotation, no subluxation posteriorly, and stable positions of sleep and full extension and external rotation. The leg could be flexed 90 degrees and internally rotated 80 degrees without instability. The joint was thoroughly irrigated. The leg was placed on a Marquez stand. Closure: The posterior hip capsule was closed with #1 PDS, and the short rotators were re-attached to the greater trochanter with #1 PDS sutures through bone. The piriformis was sutured to the posterior edge of the abductors and further posterior closure was done with 0 PDS. The hip was irrigated once again. The fascia of gluteus trace was run with looped 0 PDS. The closure was completed in layers with Stratafix, Monocril, outer Prolene vertical mattress sutures. The incision was covered with a sterile dressing. The procedure was completed, drapes were taken down, and patient was returned to the supine position on the operating table. Patient was transferred to the hospital bed and brought to the PACU in stable condition. Final sponge and instrument count were correct. Postoperative neurovascular exam of the foot was deferred as the spinal was still in effect. Postoperative DVT prophylaxis with aspirin for 6 weeks and postoperative antibiotics: Ancef x 5-7 days, then Doxy PO x 3 months if cultures negative. Patient will be weight bearing as tolerated with appropriate precautions. DESCRIPTION OF COMPLEX PROCEDURE This procedure was made more complex by the patient's infection and hip spacer scarring. The significant amount of scar tissue encountered, as well as the tight nature of the incision and working space made this procedure much more complex and lengthy, although there were no complications noted as a result of this. The patient's prior infection and scarring did increase the overall surgical time, and to some degree, the blood loss that was encountered. A total of 600 cc of blood loss was encountered in this procedure. Disposition: Admitted Attending Attestation: Rodríguez Merchant MD was present for the entire procedure. Rodríguez Merchant MD GLUCOSE (01/04/2017 1:30 PM) Component Value Range Glucose 73Comment: 65-99 mg/dL The Expert Committee on the Diagnosis and Classification of Diabetes has defined impaired fasting glucose as greater than or equal to 100 mg/dL but less than 126 mg/dL.(Diabetes Care 28 (Suppl 1)S41,2005) Specimen Blood CREATININE (01/04/2017 1:30 PM) Component Value Range Creatinine 0.9Comment: 0.6-1.2 mg/dL Creatinine switched to enzymatic method on 02/23/2011.GFR equation switched to IDMS-traceable MDRD equation on 02/23/2011. Calculated GFR values are not valid in clinical settings where serum creatinine is changing. Calculated GFR >90 >60 mL/min/1.73 m2 Specimen Blood BLOOD UREA NITROGEN (01/04/2017 1:30 PM) Component Value Range BUN 6(L) 10-20 mg/dL Specimen Blood CO2 (01/04/2017 1:30 PM) Component Value Range CO2 29 22-29 mEq/L Anion Gap 9 8-18 mEq/L Specimen Blood CHLORIDE (01/04/2017 1:30 PM) Component Value Range Chloride 103 95-107 mEq/L Specimen Blood POTASSIUM (01/04/2017 1:30 PM) Component Value Range Potassium 4.7 3.5-5.0 mEq/L Specimen Blood SODIUM (01/04/2017 1:30 PM) Component Value Range Sodium 141 135-145 mEq/L Specimen Blood HEMATOCRIT (01/04/2017 1:30 PM) Component Value Range Hematocrit 29(L) 40-52 % Specimen Whole Blood HEMOGLOBIN (01/04/2017 1:30 PM) Component Value Range Hemoglobin 8.9(L) 13.2-17.7 g/dL Specimen Whole Blood PELVIS LOW AP (01/03/2017 6:12 PM) Impressions Findings / Impression: Posterior changes of interval right total hip arthroplasty revision. Stable appearance of left total hip arthroplasty. No evidence of hardware complication. No acute fracture or dislocation. Narrative Procedure: PELVIS LOW AP Clinical Indication: s/p hip replacement, assess postop appearance Comparison: 12/06/2016 Procedure Note Alcides, Incoming Imaging Results - TueJan 04, 2017 11:46 AM CDT Procedure: PELVIS LOW AP Clinical Indication: s/p hip replacement, assess postop appearance Comparison: 12/06/2016 IMPRESSION Findings / Impression: Posterior changes of interval right total hip arthroplasty revision. Stable appearance of left total hip arthroplasty. No evidence of hardware complication. No acute fracture or dislocation. BODY FLUID CELL COUNT AND DIFF (01/03/2017 4:15 PM) Component Value Range Body Fluid Type Synovial fluid Clarity, Other Turbid(A) Clear Color, Other Red(A) None, Yellow, Pale Yellow Total Nucleated Count, Other 545 /MM3 RBC Count, Other 102964 /MM3 Neutrophils, Other 223 /MM3 Lymphocytes, Other 153 /MM3 Mononucleated Cells, Other 158 /MM3 Eosinophils, Other 11 /MM3 % Neutrophils, Other 41.0 % % Lymphocytes, Other 28.0 % %BF Mononucleated Cells 29.0 % % Eosinophils, Other 2.0 % Specimen Other AEROBIC CULTURE, ROUTINE (01/03/2017 4:12 PM)Only the most recent of5 resultswithin the time period is included. Component Value Range Culture No Growth Gram Stain No organisms observed Gram Stain Rare PMN's Specimen Microbiology - Prosthetic joint ANAEROBIC CULTURE (01/03/2017 4:12 PM)Only the most recent of5 resultswithin the time period is included. Component Value Range Anaerobic culture growth No anaerobic organisms isolated Specimen Microbiology - Prosthetic joint SPINAL BLOCK (01/03/2017 4:11 PM) Narrative Olga Robles 01/03/20174:11 PM Spinal Procedure Indication: Surgical Anesthesia Position: Sitting Preparation: Povidone-iodine Skin infiltrated with local anesthetic Level: L4/5 Type: Single-Shot Needle: Svetlana Gauge: 22 G Length: 3.5 inch Clear CSF aspirated and spinal drug injected US used to identify nerve/real time visualization of needle placement & local anesthetic injection & US image captured: No Additional Observations Blood aspirated: No Pain on injection: No Paresthesia on injection: No Spinal sensory block level T6 achieved at 8 minutes. Start time: 01/03/2017 2:35 PM End time: 01/03/2017 2:39 PM Events: no other event Success: Complete Performed by Anesthesiologist: ELENA PARKER [employer]RE[employer] BUILDINGS DECORATOR/SRNA: OLGA ROBLES SURGICAL PATHOLOGY EXAM (01/03/2017 4:08 PM) Component Value Range Case Report Surgical Pathology Case: [id number] Authorizing Provider:Rodríguez Merchant MD Collected: 01/03/2017 04:08 PM Ordering Location: Main OR Received:01/03/2017 04:14 PM Pathologist: Bita Hernandez Intraop: Bita Hernandez Specimen:Surgical Pathology Specimen, right hip prosthetic joint R/O WBC per HPF Diagnosis A.Right hip prosthetic joint, resection: Synovial tissue with focal chronic inflammation and necrosis , with no significant acute inflammation (0-1 neutrophil per high power field). I have personally reviewed this case and edited the report as necessary. Gross Description Received fresh for frozen section analysis in a container labeled with [facility] number, and "right hip prosthetic joint rule out WBC per HPF" is a 4.0 x 3.0 x 0.8 cm aggregate of michael- pink soft tissue fragments.The specimen is sectioned to reveal michael-pink/ white fibrous cut surfaces.The specimen is submitted entirely: A1:Frozen section remnant A2:Remainder of tissue BNS/rls Microscopic Description Microscopic examination has been performed and supports the diagnosis. Intraoperative Consult FS A.Right hip prosthetic joint R/O WBC per HPF: Fibrous tissue with no significant acute inflammation (0-1 neutrophil per 10 hpf). FSA1/2 LLUVIA/SOFYA Lowry MD, R4 Bita Hernandez MD, PhD Specimen Surgical Pathology - Surgical Pathology Specimen C-REACTIVE PROTEIN (01/03/2017 3:05 PM) Component Value Range CRP (C-Reactive Protein) 2.3(H) <=0.5 mg/dL Specimen Blood ERYTHROCYTE SEDIMENTATION RATE (01/03/2017 3:05 PM) Component Value Range ESR (Erythrocyte Sedimentation Rate) 25(H) 0-15 mm/Hr Specimen Whole Blood TYPE AND SCREEN (BLOOD TYPE(ABORH) AND RBC ANTIBODY SCREEN) (01/03/2017 3:05 PM ) Component Value Range ABORH A Positive Specimen Expiration Date 2017-01-06 Antibody Screen Negative Specimen Blood DENTOALVEOLAR SURGERY (12/31/2016 5:25 PM) Jam Chen DDS 12/31/20165:25 PM Full Mouth Tooth Extraction Procedure Note Procedure Date: 12/31/16 [facility] Procedural Sedation Assessment HEENT: Mouth - normal Cardiac: Regular Pulmonary: Clear bilaterally Impairments: Physical Airway Assessment: Mallampati Class II ASA Class: 2. Mild systemic disease, which does not limit activity, e.g.: controlled hypertension or mild diabetes Pre-operative Diagnosis: Nonrestorable teeth #2,3,4,5,6,7,8,9,10,11,12,13,14,15,18,20,21,22,23,24,25,26,27,28,2 9,30,31. Post-operative Diagnosis:Same. Faculty Surgeon: Mathew Lopez Resident Surgeon: Mian Duckworth DDS Assistants: Sarita Blanca Anesthesia Start Time: 11:31 Anesthesia Stop Time: 1:20 Procedure:Tooth extraction #2,3,4,5,6,7,8,9,10,11,12,13,14,15,18,20,21,22,23,24,25,26,27,28,2 9,30,31 ([id number] x 27),Alveoloplasty UR,UL,LR,LL (D7310 x 4), deep sedation ([id number] x 6) Consent Obtained: The risks, benefits, indications, potential complications, and alternatives were explained to the patient and informed consent obtained. Description of Operation/Procedure: [facility].The medical history was reviewed and there are no changes. A thorough pre-procedural anesthetic evaluation was completed. IV access was obtained.Appropriate monitors were placed and checked.Oxygen was administered via nasal cannula.The patient was prepped and draped in the usual fashion. IV Clindamycin 600mg were administered.Sedative agents were administered and titrated to desired effect. Local anesthetic was administered and given time to take effect. Gauze was placed to protect the oropharynx.A crestal incision was made in the maxilla and a full thickness flap was elevated. Teeth 2,3,4,5,6,7,8,9,10,11,12,13,14,15# were then extracted with elevator and forceps technique without complication.Major alveoloplasty was completed to prepare the ridge for a prosthesis.The sockets were curetted and the entire area was irrigated.The gingival tissues were trimmed and reapproximated with 3-0 chromic gut suture in continuous fashion.A crestal incision was made in the mandible and a full thickness flap was elevated.Teeth #18,20,21,22,23,24,25,26,27,28,29,30,31 were extracted with elevator and forceps technique without complication.Major alveoloplasty was completed to prepare the ridge for a prosthesis.The sockets were curetted and the entire area was irrigated.The gingival tissues were trimmed and reapproximated with 3-0 chromic gut suture in continuous fashion. Gauze was removed from the mouth and fresh gauze was placed to aid in hemostasis.The patient tolerated the procedure well and was discharged in stable condition. Agents: 7.5 mg Versed 0.075 mg Fentanyl 600 mg Clindamycin 30 mg Toradol 10.2 cc 2% lidocaine with 1:100,000 epinephrine 3.4 cc 0.5% marcaine with 1:200,000 epinephrine 1.7 cc 4% septocaine with 1:100,000 epinephrine Findings:As above. Specimens:None. EBL:Minimal Fluids: 500 cc LR Suture: 3-0 chromic gut Complications:The patient tolerated the procedure well and had no complications. Plan: RTC prn. Discharge: Patient approved for discharge by dentist. Discharge Vitals: Blood pressure: 103/71 (:17 PM) Pulse: 83 (171:17 PM) 85 (:17 PM) Temperature: 97.9 (12/31/16 10:33 AM) Temp. Source: Tympanic (12/31/16 10:33 AM) Respiratory rate: 19 (:17 PM) SpO2: 100 (: PM) Pain: No data found.8 (Severe) (12/31/16 10:33 AM) Nausea and Vomiting: No data found. Teaching Statement: Dr. Mathew Lopez was present for villanueva portions of the procedure, defined as assurance of anesthesia, and was immediately available for the remainder of the procedure. Mian Duckworth DDS
[2017-03-26 17:26] LABS: Urine Appearance Clear; Urine Bacteria TRACE; Urine Color Dark Yellow; Urine RBC None Seen /hpf (0-5); Urine WBC 0-5 /hpf (0-5)
--- NOTE | 2017-03-26 17:36 | ERNOTE ---
Lower Extremity HPI - Narrative Date of Service: 03/26/17 - General Lower Extremities Pain: hip: bilateral Time Seen by Provider: 03/26/17 16:03 Source: patient Exam Limitations: clinical condition - [place] [address] DRUGS - Immun/Allergies/Home Medications Immunizations: IMMUNIZATION HX Immunizations Up to Date Yes History of Influenza Vaccine No Hx Pneumococcal Vaccination No Allergies/Adverse Reactions: Allergies Allergy/AdvReac Type Severity Reaction Status Date / Time diphenhydramine HCl AdvReac Intermediate rash Verified 03/26/17 14:47 [From Benadryl] steriod Allergy Severe Other Uncoded 03/26/17 14:47 Home Medications: HOME MEDICATIONS HYDROmorphone HCL [Dilaudid] 4 mg PO QID PRN 10/19/16 [Last Taken Unknown] oxyCODONE HCL/ACETAMINOPHEN [Percocet 5 MG/325 MG] 1 tab PO QID PRN #14 tablet 10/20/16 [Last Taken Unknown] - History of Present Illness Narrative: PATIENT BROUGHT IN BY POLICE FOR MEDICAL CLEARANCE. PATIENT STATED HIS HIP HURT. PATIENT APPEARED UNDER THE INFLUENCE OF SOMETHING BUT HE WAS NOT ABLE TO TELL ME WHAT IT WAS. Date (Duration): 03/26/17 Occurred: just prior to arrival Location of Incident: home Method of Injury: Reports: no apparent injury, unknown Loss of Consciousness: Reports: no loss of consciousness Other Injuries: Reports: none Additional Comments: BILATERAL HIP REPLACEMENT Review of Systems - Narrative Narrative: ROS WAS EXTREMELY DIFFICULT, PATIENT KEPT FALLING ASLEEP DURING INTERVIEW. - Review of Systems Constitutional: Present: no symptoms reported EYE: Present: no symptoms reported ENT: Present: no symptoms reported Respiratory: Present: no symptoms reported Cardiology: Present: no symptoms reported Gastrointestinal/Abdominal: Present: no symptoms reported Genitourinary: Present: no symptoms reported Musculoskeletal: Present: See HPI, joint pain Neurological: Present: no symptoms reported Endocrine: Present: no symptoms reported Hematologic/Lymphatic: Present: no symptoms reported Psych: Present: no symptoms reported - Patient's Past Medical History Patient History - Medical: Anxiety, Arthritis, Chronic Pain, Osteoarthritis, Other Patient History - Cardiac/Respiratory: No pertinent hx Patient History - Cancer: No Hx of Cancer Patient History - Surgical Procedures: Ear Tubes, Total Hip Replacement, T & A Patient History - Other: None - Family History Father Family History - Medical: Diabetes Type 2 Family History - Cardiac/Respiratory: No pertinent hx - Social History Living Situations: home Abuse History: No History of abuse Psych History: Hx of Anxiety, Hx of Depression, Current tx/ever been on anti- depressants or anti-anxiety meds Smoking Status: Current every day smoker Alcohol Use: none Drug Use: marijuana - Immunizations Immunizations Up to Date: Yes Hx Pneumococcal Vaccination: No History of Influenza Vaccine: No Physical Exam - Physical Exam Narrative: PATIENT HAD DO BE WOKEN SEVERAL TIMES SURING HIS EXAM. PATIENT WAS NOT COOPERATIE FOR HIS EXAM, MOST LKELY DUE TO WHAT EVER MEDICATIONS HE TOOK PRIOR TO COMING IN. General Appearance: Present: no apparent distress, lethargic Eye Exam: Normal inspection: bilateral Ears, Nose, Throat: Present: normal ENT inspection Neck: Present: normal inspection, nontender Respiratory: Present: no respiratory distress, normal breath sounds, no accessory muscle use, chest nontender, lungs clear Cardiovascular/Chest: Present: regular rate, rhythm, no murmur, normal peripheral pulses Peripheral Pulses: N=norm/S=strong/W=weak/B=bound/A=absent: Carotid (R): Normal , Carotid (L): Normal, Radial (R): Normal, Radial (L): Normal, Dorsalis-pedis (R ): Normal, Dorsalis-pedis (L): Normal Gastrointestinal/Abdominal: Present: normal bowel sounds, nontender, nondistended, soft, no organomegaly Back Exam: Present: normal inspection, normal range of motion, no CVA tenderness , no vertebral tenderness Extremity Exam: Present: normal inspection, non-tender, normal range of motion, no edema. Absent: decreased range of motion, pedal edema, joint redness, joint swelling, extremity edema Skin Exam: Present: normal color, warm/dry Lymphatic Exam: Present: no adenopathy ED Progress - Results and Orders Patient's Lab Results:: I have reviewed the patient's lab results. Results and Orders: POSITIVE DRUG SCREEN - Vital Signs Patient's Vital Signs:: I have reviewed the patient's vital signs. Vital Signs: Vital Signs 03/26/17 14:36 Temperature 37 C Pulse Rate 96 Respiratory 18 Rate Blood Pressure 137/83 O2 Sat by Pulse 96 Oximetry - Progress/Reassessment Chief Complaint: Hip Pain/Injury Progress:: Unchanged Plan - Plan Plan: AFTER REVIEWING THIS CASE WITH ER ATTENDING WE BOTH CONCLUDED THAT PATIENT WAS SAFE TO D/C HIM TO POLICE CUSTODY. Departure Clinical Impression: Hip pain, chronic Qualifiers: Laterality: unspecified laterality Qualified Code(s): M25.559 - Pain in unspecified hip - Departure Disposition: Group Home Condition: Stable Instructions: Stimulant Use Disorder-Amphetamines, Hip Pain, Cannabis Use Disorder, Finding Treatment for Addiction, Joint Pain Additional Instructions: Patient is medically cleared to go to nursing home. He is currently medically stable at this time. Patient may return to emergency room if condition changes. It would be advised the patient seeks treatment for his alcohol abuse.
[2017-03-26 18:00] VITALS: BP 132/81
== END 2017-03-26 17:42 ==
LOC: ER 14:18
DX: M25.559 Pain in unspecified hip (principal); Y35.813A Legal intervention involving manhandling, suspect injured, initial encounter; Y92.009 Unspecified place in unspecified non-institutional (private) residence as the place of occurrence of the external cause
CPT/HCPCS: 36415; 73522; 80307; 81001; 99284; G0481

== ENCOUNTER 2017-05-07 23:30 | Emergency (ER) | payer MEDICARE, OTHER ==
[2017-05-07 23:39] VITALS: BP 125/70
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
== END 2017-05-07 23:55 | disposition left against medical advice (07) ==
LOC: ER 23:30
DX: Z76.5 Malingerer [conscious simulation] (principal); Z53.29 Procedure and treatment not carried out because of patient's decision for other reasons

== ENCOUNTER 2017-07-09 19:56 | Emergency (ER) | payer MEDICARE, OTHER ==
[2017-07-09 20:17] VITALS: BP 134/58
[2017-07-09] MEDS ORDERED: ACETAMINOPHEN 500 MG TABLET PO ONE (20:49)
[2017-07-09] MEDS ORDERED: KETOROLAC TROMETHAMINE 30 MG/ML VIAL IM ONE (20:49)
[2017-07-09] MEDS ORDERED: KETOROLAC TROMETHAMINE 30 MG/ML VIAL ONE (20:50)
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
== END 2017-07-09 21:05 | disposition home or self-care (01) ==
LOC: ER 19:56
DX: F19.10 Other psychoactive substance abuse, uncomplicated (principal); Z72.89 Other problems related to lifestyle; F17.200 Nicotine dependence, unspecified, uncomplicated

== ENCOUNTER 2017-09-07 22:50 | Emergency (ER) | payer MEDICARE, OTHER ==
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
[2017-09-08] MEDS ORDERED: KETOROLAC TROMETHAMINE 60 MG/2 ML VIAL IM ONE ×2 (00:11→00:12)
[2017-09-08 00:21] VITALS: BP 92/62
== END 2017-09-08 00:25 ==
LOC: ER 22:50
DX: S80.02XA Contusion of left knee, initial encounter (principal); F17.200 Nicotine dependence, unspecified, uncomplicated

== ENCOUNTER 2017-11-16 17:38 | Emergency (ER) | payer MEDICARE, MEDICAID ==
[2017-11-16] MEDS ORDERED: KETOROLAC TROMETHAMINE 60 MG/2 ML VIAL IM ONE (18:14)
[2017-11-16 18:20] LABS: Hematocrit 39.8 % (42.0-52.0); Hemoglobin 12.7 gm/dL (13.5-18.0); Mean Cell Volume 88.1 fl (78-100); Mean Corpuscular Hemoglobin 28.1 pg (27-31); Mean Corpuscular Hgb Conc 31.9 g/dl (32-36); Mean Platelet Volume 8.6 fl (6.0-9.5); Neutrophil # 6.2 K/mm3 (1.3-6.0); Neutrophil % 65.8 % (42-75.0); Platelet Count 322 K/mm3 (150-450); Red Blood Count 4.52 M/mm3 (4.7-6.0); Red Cell Distribution Width 14.7 % (11.5-14.0); White Blood Count 9.4 K/mm3 (4.0-10.5)
--- NOTE | 2017-11-16 18:20 | ERNOTE ---
Lower Extremity HPI - General Time Seen by Provider: 11/16/17 17:51 Source: patient Exam Limitations: no limitations - Immun/Allergies/Home Medications Immunizations: IMMUNIZATION HX Immunizations Up to Date Yes History of Influenza Vaccine No Hx Pneumococcal Vaccination No Allergies/Adverse Reactions: Allergies Allergy/AdvReac Type Severity Reaction Status Date / Time diphenhydramine HCl AdvReac Intermediate rash Verified 11/16/17 17:47 [From Benadryl] steroid Allergy Uncoded 11/16/17 17:47 Home Medications: HOME MEDICATIONS NK [No Home Medication] 11/16/17 [Last Taken Unknown] - History of Present Illness Narrative: Patient has a history of chronic pain and drug use. He states that after his ( second) hip replacement he has been off narcotics for almost a year. Two days ago he transitioned from inpatient rehab for meth to out patient treatment. He denies using any meth since. Patient states initially that his right hip is hurting, then that both hips hurt radiating down to both knees, then states that most of his legs hurt and well as bilateral shoulder pain, denies any injury, also URI symptoms. Most of these symptoms have been going on for about two weeks Occurred: other Method of Injury: Reports: no apparent injury Associated Symptoms: Denies: unable to bear weight, snapping, popping sensation , dizzy/light headedness, weakness, chest pain, bowel/bladder problems Subsequent Symptoms: Denies: sensory loss, numbness Review of Systems - Review of Systems Constitutional: Present: chills, malaise. Absent: recent illness ENT: Present: nose congestion, nasal drainage, sore throat. Absent: ear pain Respiratory: Present: cough. Absent: shortness of breath Cardiology: Absent: chest pain Gastrointestinal/Abdominal: Absent: nausea, vomiting, diarrhea, abdominal pain Genitourinary: Present: no symptoms reported Musculoskeletal: Present: back pain, muscle pain. Absent: neck pain Skin: Absent: rash Neurological: Absent: headache, weakness, numbness - Patient's Past Medical History Patient History - Medical: Anxiety, Arthritis, Chronic Pain, Osteoarthritis, Other Patient History - Cardiac/Respiratory: No pertinent hx Patient History - Cancer: No Hx of Cancer Patient History - Surgical Procedures: Ear Tubes, Total Hip Replacement, T & A Patient History - Other: None - Family History Father Family History - Medical: Diabetes Type 2 Family History - Cardiac/Respiratory: No pertinent hx - Social History Living Situations: home Abuse History: No History of abuse Psych History: Hx of Anxiety, Hx of Depression, Current tx/ever been on anti- depressants or anti-anxiety meds Smoking Status: Current every day smoker Alcohol Use: occasionally Drug Use: marijuana - Immunizations Immunizations Up to Date: Yes Hx Pneumococcal Vaccination: No History of Influenza Vaccine: No Physical Exam - Physical Exam General Appearance: Present: wd/wn, alert, no apparent distress Head Exam: Present: normal inspection Eye Exam: Normal inspection: bilateral Ears, Nose, Throat: Present: abnormal TM (R), normal pharynx Neck: Present: normal inspection Respiratory: Present: no respiratory distress, normal breath sounds, lungs clear Cardiovascular/Chest: Present: regular rate, rhythm, no murmur Back Exam: Present: normal inspection, no vertebral tenderness Extremity Exam: Present: normal inspection, normal range of motion, other - diffuse mild muscle tenderness in both legs and shoulders ED Progress - Results and Orders Patient's Lab Results:: I have reviewed the patient's lab results. - Vital Signs Patient's Vital Signs:: I have reviewed the patient's vital signs. Vital Signs: Vital Signs 11/16/17 17:41 Temperature 36.9 C Pulse Rate 81 Respiratory 17 Rate Blood Pressure 114/45 O2 Sat by Pulse 99 Oximetry - Progress/Reassessment Chief Complaint: Hip Pain/Injury Progress Note-Subjective: 11/16/17 18:07 discussed that I won't give him any narcotic pain medications, patient agreed to toradol 11/16/17 19:23 patient left without signing, states that his mother will get his lab results Departure Clinical Impression: Chronic pain Qualifiers: Chronic pain type: other chronic pain Qualified Code(s): G89.29 - Other chronic pain - Departure Disposition: Home self-care Condition: Good Instructions: Chronic Pain
[2017-11-16] MEDS: KETOROLAC TROMETHAMINE 60 MG/2 ML VIAL IM ONE (18:21)
[2017-11-16 18:35] LABS: Albumin * 3.5 gm/dl (3.4-5.0); Anion Gap 8.7 mmol/L (6.8-13.8); BUN/Creatinine Ratio 7.8 (9.0-21.6); Bilirubin, Total 0.3 mg/dL (0.0-1.1); CRP 5.6 mg/dL (0.0-0.9); Ca. Corrected For Albumin 8.8 mg/dL (8.4-10.2); Calcium * 8.7 mg/dL (7.9-10.9); Carbon Dioxide 33.2 mmol/L (24-32.6); Potassium 3.9 mmol/L (3.4-4.6); Total Protein 8.5 gm/dL (6.2-8.2)
[2017-11-17 09:19] VITALS: BP 138/77
== END 2017-11-16 18:29 | disposition home or self-care (01) ==
LOC: ER 17:38
DX: G89.29 Other chronic pain; R53.81 Other malaise

== ENCOUNTER 2017-12-10 16:22 | Emergency (ER) | payer MEDICARE, MEDICAID ==
[2017-12-10] MEDS ORDERED: NORMAL SALINE 1,000 ML IV ONE (16:36)
--- NOTE | 2017-12-10 16:41 | ERNOTE ---
Neuro HPI ER Record Presenting Symptoms: confusion Time Seen by Provider: 12/10/17 16:34 Source: patient, family, EMS Exam Limitations: no limitations - now although apparently he had some altered mental status while he was at the house Immunizations: IMMUNIZATION HX Immunizations Up to Date Yes History of Influenza Vaccine No Hx Pneumococcal Vaccination No Allergies/Adverse Reactions: Allergies Allergy/AdvReac Type Severity Reaction Status Date / Time diphenhydramine HCl AdvReac Intermediate rash Verified 11/16/17 17:47 [From Benadryl] steroid Allergy Uncoded 11/16/17 17:47 Home Medications: HOME MEDICATIONS Alprazolam [Alprazolam ER] 2 mg PO BID 12/10/17 [Last Taken Unknown] Gabapentin 300 mg PO TID 12/10/17 [Last Taken Unknown] HYDROmorphone HCL [Exalgo] 12 mg PO DAILY 12/10/17 [Last Taken Unknown] Multivitamin [One Daily Essential] 1 each PO DAILY 12/10/17 [Last Taken Unknown] Omeprazole 40 mg PO BID 12/10/17 [Last Taken Unknown] Paliperidone Palmitate [Invega Sustenna] 117 mg IM 12/10/17 [Last Taken Unknown] - History of Present Illness Narrative: Patient had a brief episode where he was somewhat confused and mother called the ambulance. Patient appears to be back to his baseline at this point, however he does admit to going back to using meth and marijuana again. Onset: cannot confirm onset Severity: moderate - Character of Deficits Additional Deficits: Present: other - none Baseline Cognition: Present: alert, oriented x 4 Baseline Gait: Present: walks w/o assistance Prior Treament: Reports: recently seen, treated by physician, recently hospitalized Review of Systems - Review of Systems Constitutional: Present: See HPI EYE: Present: no symptoms reported ENT: Present: no symptoms reported Respiratory: Present: no symptoms reported Cardiology: Present: no symptoms reported Gastrointestinal/Abdominal: Present: no symptoms reported Genitourinary: Present: no symptoms reported Musculoskeletal: Present: no symptoms reported Skin: Present: no symptoms reported Neurological: Present: See HPI Endocrine: Present: no symptoms reported Hematologic/Lymphatic: Present: no symptoms reported Psych: Present: no symptoms reported - Patient's Past Medical History Patient History - Medical: Anxiety, Arthritis, Chronic Pain, GERD, Osteoarthritis, Other - probable schizophrenia Patient History - Cardiac/Respiratory: No pertinent hx Patient History - Cancer: No Hx of Cancer Patient History - Surgical Procedures: Ear Tubes, Total Hip Replacement, T & A, Other Patient History - Other: None - Family History Father Family History - Medical: Diabetes Type 2 Family History - Cardiac/Respiratory: No pertinent hx - Social History Living Situations: parents Abuse History: No History of abuse Psych History: Hx of Anxiety, Hx of Depression, Current tx/ever been on anti- depressants or anti-anxiety meds Smoking Status: Current every day smoker Have you smoked in the past 12 months: Yes Do you dip or chew tobacco: No Alcohol Use: occasionally Drug Use: marijuana, meth - Immunizations Immunizations Up to Date: Yes Hx Pneumococcal Vaccination: No History of Influenza Vaccine: No Physical Exam - Physical Exam General Appearance: Present: wd/wn, alert, no apparent distress Head Exam: Present: normal inspection, no evidence of injury Eye Exam: Normal inspection: bilateral, PERRL: bilateral Ears, Nose, Throat: Present: normal ENT inspection, H, normal pharynx Neck: Present: normal inspection, nontender Respiratory: Present: no respiratory distress, normal breath sounds, no accessory muscle use, chest nontender, lungs clear Cardiovascular/Chest: Present: no murmur, normal peripheral pulses, tachycardia Gastrointestinal/Abdominal: Present: normal bowel sounds, nontender, nondistended, soft, no organomegaly Rectal Exam: Present: deferred Male Genitals Exam: Present: deferred Back Exam: Present: normal inspection, normal range of motion Extremity Exam: Present: normal inspection, non-tender, no edema, normal range of motion Neurological Exam: Present: alert, oriented, normal mood/affect Skin Exam: Present: normal color, warm/dry Lymphatic Exam: Present: no adenopathy ED Progress - Results and Orders Patient's Lab Results:: I have reviewed the patient's lab results. - Vital Signs Patient's Vital Signs:: I have reviewed the patient's vital signs. Vital Signs: Vital Signs 12/10/17 16:26 Temperature 37.1 C Pulse Rate 101 H Respiratory 18 Rate Blood Pressure 124/71 O2 Sat by Pulse 96 Oximetry - CT/Ultrasound CT/Ultrasound Narrative: CT the head reviewed by me Plan - Plan Plan: Patient had another episode while he was here in the emergency department which appeared to be more of a partial complex seizure. Patient was advised that he needs to get an outpatient EEG and is not to drive until he is cleared by either a neurologist or his family physician. Departure Clinical Impression: Drug abuse, Partial seizures, Amphetamine abuse - Departure Disposition: Home self-care Condition: Good Instructions: Stimulant Use Disorder-Methamphetamines, Finding Treatment for Addiction, Epilepsy, [id number] Additional Instructions: Discuss an outpatient EEG with your family doctor No driving until cleared by a neurologist or your family doctor
[2017-12-10 16:57] LABS: Hematocrit 36.6 % (42.0-52.0); Mean Cell Volume 85.3 fl (78-100); Mean Corpuscular Hgb Conc 32.8 g/dl (32-36); Mean Platelet Volume 9.5 fl (6.0-9.5); Neutrophil # 5.7 K/mm3 (1.3-6.0); Neutrophil % 59.7 % (42-75.0); Platelet Count 278 K/mm3 (150-450); Red Blood Count 4.29 M/mm3 (4.7-6.0); Red Cell Distribution Width 14.8 % (11.5-14.0); White Blood Count 9.5 K/mm3 (4.0-10.5)
[2017-12-10 17:10] LABS: ALT 44 U/L (19-67); AST 22 U/L (0-48); Albumin * 3.5 gm/dl (3.4-5.0); Alkaline Phosphatase * 74 U/L (50-170); Anion Gap 16.2 mmol/L (6.8-13.8); BUN/Creatinine Ratio 14.6 (9.0-21.6); Bilirubin, Total 0.3 mg/dL (0.0-1.1); Blood Urea Nitrogen 18 mg/dL (6-23); Ca. Corrected For Albumin 8.8 mg/dL (8.4-10.2); Calcium * 8.7 mg/dL (7.9-10.9); Carbon Dioxide 25.9 mmol/L (24-32.6); Chloride 102 mmol/L (97-106); Glucose * 86 mg/dL (70-110); Magnesium 2.1 mg/dL (1.2-2.8); Potassium 4.1 mmol/L (3.4-4.6); Salicylate 5.4 mg/dL (2.8-20.0); Sodium 140 mmol/L (132-142); Total Protein 7.7 gm/dL (6.2-8.2)
[2017-12-10 17:16] VITALS: BP 130/76
[2017-12-10 17:47] LABS: Urine Appearance Clear; Urine Bilirubin Negative (NEGATIVE); Urine Blood Negative /ul (NEGATIVE); Urine Color Yellow; Urine Ketone Negative (NEGATIVE); Urine Protein Negative (NEGATIVE); Urine Specific Gravity 1.025 SP.GR. (1.005-1.030)
[2017-12-10 17:48] LABS: Urine Nitrite Negative (NEGATIVE); Urine Urobilinogen Normal (NORMAL)
[2017-12-10 17:51] LABS: Cocaine Ur Negative (NEGATIVE); Urine Barbiturate Negative (NEGATIVE); Urine Benzodiazepines Negative (NEGATIVE); Urine Opiates Negative (NEGATIVE); Urine PCP Negative (NEGATIVE)
[2017-12-10 17:53] LABS: Urine Bacteria None Seen; Urine RBC None Seen /hpf (0-5); Urine WBC None Seen /hpf (0-5)
[2017-12-10 18:18] LABS: Urine THC Positive (NEGATIVE)
== END 2017-12-10 18:34 | disposition home or self-care (01) ==
LOC: ER 16:22
DX: G40.89 Other seizures (principal); F15.10 Other stimulant abuse, uncomplicated; F19.10 Other psychoactive substance abuse, uncomplicated; F41.9 Anxiety disorder, unspecified; G89.29 Other chronic pain; K21.9 Gastro-esophageal reflux disease without esophagitis; F17.200 Nicotine dependence, unspecified, uncomplicated
CPT/HCPCS: 36415; 36600; 70450; 80053; 80307; 81001; 82803; 83735; 85025; 87400; 99284; G0480; G0481

== ENCOUNTER 2018-08-09 19:24 | Observation (INO) | payer MEDICAID, MEDICARE ==
[2018-08-09] MEDS ORDERED: NORMAL SALINE 1,000 ML IV ONE ×2 (19:40→21:49)
--- NOTE | 2018-08-09 19:41 | ERNOTE ---
<Kevan Anne - Last Filed: 08/09/18 19:48> Medical Problem HPI - Narrative Date of Service: 08/09/18 - General Time Seen by Provider: 08/09/18 19:27 Source: patient, EMS notes reviewed Exam Limitations: clinical condition - Immun/Allergies/Home Medications Immunizations: IMMUNIZATION HX Immunizations Up to Date Yes History of Influenza Vaccine No Hx Pneumococcal Vaccination No Allergies/Adverse Reactions: Allergies diphenhydramine HCl [From Benadryl] Adverse Reaction (Intermediate, Verified 07/31/18 14:32) rash steroid Adverse Reaction (Uncoded 08/03/18 10:43) progressive lung disease Home Medications: HOME MEDICATIONS Cyclobenzaprine HCl [Flexeril] 10 mg PO TID PRN 07/11/18 [Last Taken Unknown] Hydroxyzine Pamoate 50 mg PO QID PRN 07/31/18 [Last Taken Unknown] Mirtazapine [Remeron] 45 mg PO HS 07/31/18 [Last Taken Unknown] risperiDONE [Risperdal] 1 mg PO DAILY 07/31/18 [Last Taken Unknown] risperiDONE [Risperidone] 2 mg PO HS 07/31/18 [Last Taken Unknown] Cyclobenzaprine HCl [Flexeril] 10 mg PO TID PRN #30 tab 08/03/18 [Last Taken Unknown] Naproxen [Naprosyn] 500 mg PO BID #60 tablet 08/03/18 [Last Taken Unknown] - History of Present History Narrative: patient called ems and stated he took abunch of perscription meds, states he wanted pain and hips to go away, also drank alcohol Timing: constant Severity: moderate Modifying Factors - (Improves): Present: other - nothing Modifying Factors - (Worsens): Present: other - nothing Review of Systems - Narrative Narrative: unremarkable - Review of Systems Constitutional: Present: See HPI, weakness, fatigue, malaise EYE: Present: no symptoms reported ENT: Present: no symptoms reported Respiratory: Present: no symptoms reported Cardiology: Present: no symptoms reported Gastrointestinal/Abdominal: Present: no symptoms reported Genitourinary: Present: no symptoms reported Musculoskeletal: Present: no symptoms reported Skin: Present: no symptoms reported Neurological: Present: See HPI, depressed, headache, dizziness/light-headedness, weakness Endocrine: Present: no symptoms reported Hematologic/Lymphatic: Present: no symptoms reported Psych: Present: no symptoms reported All Other Systems: All systems neg except as marked Medical History (Last Updated 08/03/18 @ 11:05 by Vik Zeng DO) Hep C w/o coma, chronic Hepatitis C Panic attacks Chronic pain syndrome Onset Date: ~12/09/11 GERD (gastroesophageal reflux disease) Onset Date: ~12/09/11 Ankle fracture Avascular necrosis Onset Date: ~01/2008 Hip, bilateral Hip pain Onset Date: ~12/09/11 Knee pain Surgical History: Surgical History (Last Reviewed 08/03/18 @ 10:43 by Michael Elias RN) H/O arthroplasty Onset Date: ~04/2009 History of hip replacement Onset Date: ~10/2008 right hip History of hip surgery Onset Date: ~2007 for vascular necrosis states 5-6 surgeries in total History of tonsillectomy As a child Family History: Family History (Last Reviewed 08/03/18 @ 10:43 by Michael Elias RN) Father COPD (chronic obstructive pulmonary disease) Mother Alive and well Social History: Preferred Language Colombian Smoking Status Current every day smoker Abuse History No History of abuse Psych History Hx of Anxiety,Hx of Depression,Currently on Meds (Last Updated 05/25/18 @ 14:10 by Laurent Napoles DO) No Social History Section defined Physical Exam - Physical Exam General Appearance: Present: moderate distress, anxious Head Exam: Present: normal inspection, no evidence of injury Eye Exam: Normal inspection: bilateral, PERRL: bilateral, EOMI: bilateral Ears, Nose, Throat: Present: normal ENT inspection, normal pharynx Neck: Present: normal inspection, nontender Respiratory: Present: no respiratory distress, normal breath sounds, no accessory muscle use, chest nontender, lungs clear Cardiovascular/Chest: Present: regular rate, rhythm, no murmur, normal peripheral pulses Gastrointestinal/Abdominal: Present: normal bowel sounds, nontender, nondistended, soft, no organomegaly Back Exam: Present: normal inspection, normal range of motion, no CVA tenderness, no vertebral tenderness Extremity Exam: Present: normal inspection, non-tender, normal range of motion, no edema Neurological Exam: Present: alert, oriented, normal mood/affect, no motor/sensory deficits Skin Exam: Present: normal color, warm/dry Lymphatic Exam: Present: no adenopathy ED Progress - Date and Time Seen: Date and Time: 08/09/18 19:38 patient to be admitted overdose - Transfer of Care Physician Sign Out: Kevan Anne Receiving Physician: Velasquez Queen Expected Disposition: Admit Plan - Plan Plan: to be admitted Departure Clinical Impression: Overdose - Departure Disposition: Still a patient Condition: Fair <Velasquez Queen - Last Filed: 08/10/18 02:38> Medical Problem HPI - Immun/Allergies/Home Medications Immunizations: IMMUNIZATION HX Immunizations Up to Date Yes History of Influenza Vaccine No Hx Pneumococcal Vaccination No Medical History (Last Updated 08/03/18 @ 11:05 by Vik Zeng DO) Hep C w/o coma, chronic Hepatitis C Panic attacks Chronic pain syndrome Onset Date: ~12/09/11 GERD (gastroesophageal reflux disease) Onset Date: ~12/09/11 Ankle fracture Avascular necrosis Onset Date: ~01/2008 Hip, bilateral Hip pain Onset Date: ~12/09/11 Knee pain Surgical History: Surgical History (Last Reviewed 08/03/18 @ 10:43 by Michael Elias RN) H/O arthroplasty Onset Date: ~04/2009 History of hip replacement Onset Date: ~10/2008 right hip History of hip surgery Onset Date: ~2007 for vascular necrosis states 5-6 surgeries in total History of tonsillectomy As a child Family History: Family History (Last Reviewed 08/03/18 @ 10:43 by Michael Elias RN) Father COPD (chronic obstructive pulmonary disease) Mother Alive and well Social History: Preferred Language Colombian Smoking Status Former smoker Abuse History No History of abuse Psych History Hx of Anxiety,Hx of Depression,Currently on Meds Alcohol Use heavy Drug Use meth (Last Updated 05/25/18 @ 14:10 by Laurent Napoles DO) No Social History Section defined ED Progress - Results and Orders Patient's Lab Results:: I have reviewed the patient's lab results. Results and Orders: Laboratory Tests 08/09/18 08/09/18 08/09/18 21:00 21:00 21:00 WBC 8.9 Hgb 11.8 L Hct 34.9 L Plt Count 255 Sodium 138 Potassium 3.4 Chloride 107 H BUN 15 D Creatinine 1.06 Random Glucose 81 Calcium 8.0 Magnesium 1.6 Total Bilirubin 0.4 AST 41 ALT 89 H Alkaline Phosphatase 58 Total Protein 6.7 Albumin 3.2 L Salicylates Less than 2.8 L Acetaminophen Less than 0.2 L Ethyl Alcohol 27.0 H - Vital Signs Patient's Vital Signs:: I have reviewed the patient's vital signs. Vital Signs: Vital Signs 08/09/18 19:25 08/09/18 19:47 08/09/18 20:25 Temperature 36.5 C Pulse Rate 76 79 85 Respiratory Rate 15 16 18 Blood Pressure 99/73 105/71 93/61 O2 Sat by Pulse Oximetry 98 99 95 - EKG EKG: NSR, RBBB - incomplete EKG read: Interp. by me - Progress/Reassessment Progress Note-Subjective: 08/09/18 20:51 Spoke with the patient about getting blood drawn for lab studies. Pt says " not until I get something for the pain in my foot. I agreed to give him something for pain. Toradol 30 mg IV ordered. 08/10/18 00:[address] Cedeno and she agreed to admit the patient.
[2018-08-09] MEDS ORDERED: KETOROLAC TROMETHAMINE 30 MG/ML VIAL IV ONE (20:48)
[2018-08-09] MEDS ORDERED: KETOROLAC TROMETHAMINE 30 MG/ML VIAL ONE (20:50)
[2018-08-09 21:09] LABS: Hematocrit 34.9 % (42.0-52.0); Hemoglobin 11.8 gm/dL (13.5-18.0); Mean Cell Volume 87.9 fl (78-100); Mean Corpuscular Hemoglobin 29.7 pg (27-31); Mean Corpuscular Hgb Conc 33.8 g/dl (32-36); Neutrophil # 4.6 K/mm3 (1.3-6.0); Neutrophil % 52.1 % (42-75.0); Platelet Count 255 K/mm3 (150-450); Red Blood Count 3.97 M/mm3 (4.7-6.0); Red Cell Distribution Width 13.7 % (11.5-14.0); White Blood Count 8.9 K/mm3 (4.0-10.5)
[2018-08-09 21:20] LABS: ALT 89 U/L (19-67); AST 41 U/L (0-48); Albumin * 3.2 gm/dl (3.4-5.0); Alkaline Phosphatase * 58 U/L (50-170); BUN/Creatinine Ratio 14.2 (9.0-21.6); Bilirubin, Total 0.4 mg/dL (0.0-1.1); Blood Urea Nitrogen 15 mg/dL (6-23); Carbon Dioxide 26.4 mmol/L (24-32.6); Chloride 107 mmol/L (97-106); Glucose * 81 mg/dL (70-110); Potassium 3.4 mmol/L (3.4-4.6); Salicylate Less than 2.8 mg/dL (2.8-20.0); Sodium 138 mmol/L (132-142); Total Protein 6.7 gm/dL (6.2-8.2)
[2018-08-09 21:23] LABS: Ca. Corrected For Albumin 8.3 mg/dL (8.4-10.2)
[2018-08-10] MEDS ORDERED: NORMAL SALINE 1,000 ML IV ONE (02:18)
[2018-08-10 07:05] LABS: Urine Bilirubin Negative (NEGATIVE); Urine Blood Negative /ul (NEGATIVE); Urine Ketone Negative (NEGATIVE); Urine Nitrite Negative (NEGATIVE); Urine Protein Negative (NEGATIVE); Urine Specific Gravity >=1.030 SP.GR. (1.005-1.030); Urine Urobilinogen Normal (NORMAL)
[2018-08-10 07:17] LABS: Urine Appearance Slightly Cloudy (CLEAR); Urine Bacteria 3+; Urine Color Dark Yellow; Urine RBC None Seen /hpf (0-5); Urine WBC None Seen /hpf (0-5)
[2018-08-10 07:18] LABS: Urine Hyaline Cast 0-5 /LPF
[2018-08-10 07:18] LABS: Cocaine Ur Negative (NEGATIVE); Urine Barbiturate Negative (NEGATIVE); Urine Benzodiazepines Negative (NEGATIVE); Urine Opiates Negative (NEGATIVE); Urine PCP Negative (NEGATIVE)
[2018-08-10 07:19] LABS: Urine Amorphous Sediment Few - 1+ (NONE-FEW)
[2018-08-10 07:20] LABS: Urine Mucus Few - 1+; Urine Renal Epithelial Cell Few - 1+ /hpf
[2018-08-10 07:21] LABS: Urine THC Positive (NEGATIVE)
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
[2018-08-10] MEDS ORDERED: NAPROXEN 500 MG TABLET PO SCH (09:00)
--- NOTE | 2018-08-10 13:08 | DS ---
(1) Depression Diagnosis(s): Px has known history of depression, he is currently receiving treatment. Problem: Chronic Qualifiers: Depression Type: major depressive disorder (2) Chronic pain Problem: Chronic (3) Drug overdose Problem: Acute Description of Stay: 32 y/o male was admitted to observation for intentional drug overdose. Patient was placed in SCU for one on one monitoring and was placed on telemetry. He slept through out the stay and did not develop any symptoms. Psych eval was ordered and patient was evaluated and cleared for discharge. He was instructed to f/u with his court mandated outpx counseling. Procedures Performed: none Results and Findings: Lab Pending Results 08/09/18 21:00: WBC 8.9, RBC 3.97 L, Hgb 11.8 L, Hct 34.9 L, MCV 87.9, MCH 29.7, MCHC 33.8, RDW 13.7, Plt Count 255, MPV 9.0, Immature Gran % (Auto) 0.20, Immature Gran # (Auto) 0.02, Neutrophils % 52.1, Lymphocytes % 36.7, Monocytes % 7.7, Eosinophils % 2.7, Basophils % 0.6, Nucleated RBC % 0.0, Neutrophils # 4.6, Lymphocytes # 3.25, Monocytes # 0.7, Eosinophils # 0.2, Absolute Basophils 0.1 08/09/18 21:00: Sodium 138, Plasma Sodium 138, Potassium 3.4, Chloride 107 H, Carbon Dioxide 26.4, Anion Gap 8.0, BUN 15 D, Creatinine 1.06, Est GFR (Non-Af Amer) 87, BUN/Creatinine Ratio 14.2, Random Glucose 81, Calcium 8.0, Calcium Adj for Albumin 8.3 L, Total Bilirubin 0.4, AST 41, ALT 89 H, Alkaline Phosphatase 58, Total Protein 6.7, Albumin 3.2 L, Salicylates Less than 2.8 L, Acetaminophen Less than 0.2 L, Ethyl Alcohol 27.0 H 08/09/18 21:00: Magnesium 1.6 08/10/18 06:39: Urine Color Dark yellow, Urine Appearance Slightly cloudy, Urine pH 6.0, Ur Specific [place] >=1.030, Urine Protein Negative, Urine Glucose (UA) Negative, Urine Ketones Negative, Urine Blood Negative, Urine Nitrate Negative, Urine Bilirubin Negative, Urine Urobilinogen Normal, Ur Leukocyte Esterase Negative, Urine RBC None seen, Urine WBC None seen, Ur Epithelial Cells Trace, Ur Renal Epithelial Cell Few - 1+ H, Amorphous Sediment Few - 1+, Urine Bacteria 3+ H, Hyaline Casts 0-5 H, Urine Mucus Few - 1+ H, Urine Culture Comments No culture indicated 08/10/18 06:45: Urine Opiates Screen Negative, Barbiturate Screen Negative, Ur Phencyclidine Scrn Negative, Urine Amphetamine Positive H, U Benzodiazepines Scrn Negative, Urine Cocaine Screen Negative, Urine Marijuana (THC) Positive H Discharge Location: Home Disposition: Home self-care Condition: Fair Face to Face Encounter completed per [facility] Guidelines: No Discharge Activity: Activity as tolerated Discharge Diet: General/regular food Problem Oriented Discharge Instructions to Patient/Family: Drug Overdose Additional Patient Instructions (free text): -Please make TCM appointment unless [facility] discharge. Thank you! Chanel @ [phone]. Appointment at [facility] in [place] on 08/17/18 at 07:30am. Transportation has been arranged through your [facility]. To make transportation arrangements for future appointments call . Please call this number tomorrow to see when you need to be ready for pickup on 08/17. Complete Home Medications List: Complete Home Medication List: RX: Mirtazapine [Remeron] 45 mg PO HS 07/31/18 RX: risperiDONE [Risperdal] 1 mg PO DAILY 07/31/18 RX: Naproxen [Naprosyn] 500 mg PO BID #60 tablet 08/03/18 RX: Mirtazapine [Remeron] 30 mg PO HS 08/10/18 RX: risperiDONE [Risperdal] 2 mg PO HS 08/10/18 RX: Nabumetone [Relafen] 500 mg PO BID #60 tab 08/13/18 RX: hydrOXYzine HCL [Hydroxyzine HCl] 25 mg IM TID #30 vial 08/13/18
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
[2018-08-10 14:03] VITALS: BP 109/73
[2018-08-10] MEDS ORDERED: MIRTAZAPINE 15 MG TABLET PO SCH (21:00)
[2018-08-10] MEDS ORDERED: risperiDONE 1 MG TABLET PO SCH (21:00)
[2018-08-11] MEDS ORDERED: risperiDONE 1 MG TABLET PO SCH (09:00)
== END 2018-08-10 14:55 | disposition home or self-care (01) ==
LOC: SCU 19:24 → ER 19:24 → SCU 08-10 01:30
PROVIDERS: ADMIT Family Medicine; ATTEND Family Medicine
CPT/HCPCS: 36415; 80053; 80307; 80320; 80329; 81001; 83735; 85025; 93005; 94760; 96361; 96374; 99284; G0378; G0479; G0480; G0481